=== PATIENT | female | born 1985 | race Caucasian/White ===

== ENCOUNTER 2017-12-18 13:14 | Emergency (ER) | payer MEDICAID, SELFPAY ==
[2017-12-18 13:15] VITALS: BP 117/76; PULSE 94; RESP 18; TEMP 36.5; O2SAT 99; BMI 26.4
--- NOTE | 2017-12-18 13:54 | ED.VISSUMM ---
- ER Visit Summary Date of Service: 12/18/17 Chief Complaint: Bilateral lower back pain History of Present Illness: The patient is a 32 F who presents for 1 day of bilateral low back pain. Patient states the pain radiates around into the bilateral lower abdomen. Pain started when she woke up yesterday it waxes and wanes in intensity but is been continuous. She has had associated nausea. Denies vomiting, fever, diarrhea. She does have associated dysuria, worse when she tries to initiate urination, frequency, urgency and small amount of hematuria. Patient has no history of kidney stones but feels like she may have passed one yesterday, stating that she felt crampy like she was given . She states she may be . History of hypertension. Physical Examination: Vital signs: afebrile, hemodynamically stable, no hypoxia on room air General: well nourished, well developed, in no distress Skin: warm, dry, no rash, no pallor HEENT: normocephalic and atraumatic; PERRL, EOMI, moist mucous membranes Cardiovascular: regular rate and rhythm without murmurs, no peripheral edema, 2+ pulses all distal extremities Respiratory: No increased work of breathing, lungs are clear to auscultation bilaterally, no rales, rhonchi or wheezing Abdominal: Abdomen is soft, tender in the suprapubic and bilateral lower quadrants with hyperactive bowel sounds, no guarding or rebound, no masses, negative CVA tenderness MSK: Moves all extremities, no deformities, normal strength Neuro: Awake and alert, oriented ?4. No facial droop, sensation and motor function intact and symmetric Test Results: Abnormal Lab Results 12/18/17 12/18/17 12/18/17 14:05 14:05 14:15 WBC 12.0 H RBC 4.57 Hgb 13.1 Hct 39.7 MCV 86.9 MCH 28.7 MCHC 33.0 RDW 14.6 RDW Differential 46.1 H Plt Count 361 MPV 8.3 Immature Gran % (Auto) 0.400 Neut % (Auto) 75.2 H Lymph % (Auto) 16.3 L Stearns % (Auto) 6.8 Eos % (Auto) 0.9 Baso % (Auto) 0.4 Absolute Neuts (auto) 9.0 H Absolute Lymphs (auto) 1.95 Total Counted Not Reportable Sodium 136 Potassium 3.6 Chloride 104 Carbon Dioxide 26.0 Anion Gap 6 BUN 5 L Creatinine 0.62 Estim Creat Clear Calc 133.62 Est GFR (MDRD) Af Amer 143 Est GFR (MDRD) Non-Af 118 BUN/Creatinine Ratio 8.1 L Glucose 87 Calcium 8.6 HCG, Quant Urine Color Yellow Urine Clarity Sl. Cloudy Urine pH 6.0 Ur Specific [place] 1.020 Urine Protein 100 H Urine Glucose (UA) Normal Urine Ketones Negative Urine Occult Blood 50 H Urine Nitrite Positive H Urine Bilirubin Negative Urine Urobilinogen Normal Ur Leukocyte Esterase 500 H Urine RBC 0 SEEN Urine WBC >100 SEEN Ur Squamous Epith Cells 0-5 SEEN Urine Bacteria 0 SEEN Urine Mucus 0 SEEN Urine Test Positive H Blood Type 12/18/17 12/18/17 15:00 15:00 WBC RBC Hgb Hct MCV MCH MCHC RDW RDW Differential Plt Count MPV Immature Gran % (Auto) Neut % (Auto) Lymph % (Auto) Stearns % (Auto) Eos % (Auto) Baso % (Auto) Absolute Neuts (auto) Absolute Lymphs (auto) Total Counted Sodium Potassium Chloride Carbon Dioxide Anion Gap BUN Creatinine Estim Creat Clear Calc Est GFR (MDRD) Af Amer Est GFR (MDRD) Non-Af BUN/Creatinine Ratio Glucose Calcium HCG, Quant 68839 H Urine Color Urine Clarity Urine pH Ur Specific [place] Urine Protein Urine Glucose (UA) Urine Ketones Urine Occult Blood Urine Nitrite Urine Bilirubin Urine Urobilinogen Ur Leukocyte Esterase Urine RBC Urine WBC Ur Squamous Epith Cells Urine Bacteria Urine Mucus Urine Test Blood Type B POSITIVE Emergency Department Course and Treatment: Patient presents with symptoms concerning for urinary tract infection versus urolithiasis. test was performed and was positive, which makes ectopic on the differential as well. CBC showed no leukocytosis. No electrolyte derangements or renal dysfunction. Urinalysis was highly positive for urine infection. Beta hCG was in 18,000. Patient is Rh+. Ultrasound was performed to evaluate for possible ectopic . Intrauterine noted on wet read with heart rate of 124. Patient was placed on antibiotics for UTI, at dosing for early pyelonephritis, given the bilateral back pain. She is to follow-up with her OB and was also given prescription for vitamins. Return precautions given. Patient will be discharged home once formal read of ultrasound is performed. Treatment Plan: [] Disposition: [] Impression: First trimester , UTI This note was generated with Simplify dictation software. It may contain incorrect words, spelling, and punctuation that were not noted in review of the chart prior to signing ED Disposition - Plan for ED Patient: Disposition: Home or Assisted Living Chief Complaint: Flank Pain Instructions: ED Care, ED Kidney Infec Female, ED UTI Cystitis Female Prescriptions: Cephalexin [Keflex] 500 mg PO Q8 #30 cap Vit Calc,Iron,Folic [ Vitamins] 1 ea PO DAILY 30 Days #30 tab Referrals: Georges Lubin MD [NON-STAFF] - Additional Instructions: Please follow up with your OB to establish care. Take the vitamins daily as prescribed. TAke the antibiotic three times daily as prescribed to treat your urinary tract/kidney infection. If you have any worsening of your condition or any new concerning symptoms, please return immediately to the emergency department for another evaluation.
[2017-12-18 14:15] LABS: Absolute Lymphocyte Count 1.95 X10^3/ul (0.83-4.51); Basophil# 0.05 X10^3/uL; Basophil% 0.4 % (0-1); Eosinophil# 0.11 X10^3/uL; Eosinophils% 0.9 % (0-5); Hematocrit 39.7 % (37-47); Hemoglobin 13.1 g/dl (12.0-15.0); Lymphocyte # 1.95 X10^3/ul (4.0); Lymphocyte % 16.3 % (19-41); Mean Corpuscular Hgb 28.7 pg (27.0-32.0); Mean Corpuscular Volume 86.9 fL (81-99); Mean Platelet Vol. 8.3 fl (6.2-12.0); Monocyte# 0.81 X10^3/uL; Monocyte% 6.8 % (0-10); Neutrophil # 8.99 X10^3/uL (2.7-7.7); Neutrophil % 75.2 % (47-70); Platelet Count 361 K/mm3 (150-450); RBC Distribution Width CV 14.6 % (11.6-14.6); RBC Distribution Width SD 46.1 fl (35.1-43.9); Red Blood Count 4.57 M/mm3 (4.2-5.4)
[2017-12-18 14:16] LABS: Differential Indicated SCAN CRITERIA MET; POSITIVE COUNT NO; POSITIVE DIFFERENTIAL NO; POSITIVE MORPHOLOGY YES
[2017-12-18] MEDS: 0.9% Normal Saline 1,000 ML 250 ML IV (14:17)
[2017-12-18] MEDS: Ondansetron 4 MG/2 ML Vial IV (14:17)
[2017-12-18] MEDS: Ketorolac 30 MG/ML Syringe IV (14:17)
[2017-12-18 14:20] LABS: Bacteria 0 SEEN /hpf (None Seen); Mucous, Urine 0 SEEN /hpf (<or=2+); Red Blood Cells-Urine 0 SEEN /hpf (0-5)
[2017-12-18 14:24] LABS: Anion Gap 6 (5-15); BUN 5 mg/dL (7-18); BUN/Creat Ratio 8.1 RATIO (10-20); Calcium,Total 8.6 mg/dL (8.5-10.1); Chloride 104 mmol/L (98-107); Creatinine, Serum 0.62 mg/dL (0.55-1.02); EST Glomerular Filtration Rate 118 mL/min (>60); Est Glom Filt Rate - Afr Amer 143 mL/min (>60); Estimated Creatinine Clearance 133.62 ml/min; Glucose 87 mg/dL (74-106); Potassium 3.6 mmol/L (3.5-5.1); Sodium Level 136 mmol/L (136-145)
[2017-12-18 14:32] LABS: Color, Urine Yellow (Yellow); Glucose, Dipstick Normal (Normal); Ketone-Dipstick Negative (Negative); Leukocyte Esterase-Dipstick 500 /ul (Negative); Nitrite-Dipstick Positive (Negative); Occult Blood-Urine 50 /ul (Negative); Protein-Dipstick 100 mg/dl (Negative); Urine Bilirubin Dipstick Negative (Negative); Urine Clarity Sl. Cloudy (Clear); Urine Urobilinogen Normal (Normal)
--- NOTE | 2017-12-18 14:36 | ED.RN ---
POS PREG CALLED FROM THE LAB. DR MOON AWARE
[2017-12-18 14:41] LABS: Squamous Epithelial Cells - UA 0-5 SEEN /hpf (5-10); White Blood Cells >100 SEEN /hpf (0-5)
[2017-12-18 14:42] LABS: Internal QC Validated? YES +Cl - CLEAR BKGD; Pregnancy, Urine Positive Negative
--- NOTE | 2017-12-18 14:46 | US_ITS ---
STUDY: FIRST TRIMESTER OBSTETRICAL ULTRASOUND REASON FOR EXAM: Female, 32 years old. Cramping for 2 days during . History of ectopic . LMP: November 13, 2017 provided by patient, who is uncertain of exact LMP. TECHNIQUE: Transvaginal PRIOR ULTRASOUND: None. FINDINGS: There is visualization of a single gestational sac in a normal intrauterine position. The mean sac diameter (MSD) measures 1.7 cm, indicating an estimated gestational age (EGA) of 6 weeks, 4 days. The gestational sac shape is within normal limits. There is a visualized yolk sac. The yolk sac measures 4.4 mm. The placenta is non-visualized. A moderately defined 12 x 13 x 9 mm crescent shaped hypoechogenicity along the right superolateral margin of the gestational sac is consistent with a small subchorionic hemorrhage. There is visualization of a live embryo. The crown-rump length (CRL) measures 9.8 mm, indicating an estimated gestational age (EGA) of 7 weeks, 1 days. There is demonstrated cardiac activity with a heart rate of 124 bpm. The estimated gestation age (EGA) by LMP is 5 weeks, 0 days. The estimated date of delivery (RONALD) by LMP is August 20, 2018. The estimated gestation age (EGA) by US is 6 weeks, 6 days. The estimated date of delivery (RONALD) by US is August 07, 2018. The uterus measures 10.0 x 6.6 x 5.6 cm. There is no demonstrated uterine fibroid. The cervix is closed. The right ovary measures 2.5 x 2.9 x 2.2 cm. There is no right ovarian cyst. There is no visualized right adnexal mass or complex lesion. The left ovary measures 2.0 x 2.2 x 1.7 cm. There is no left ovarian cyst. There is no visualized left adnexal mass or complex lesion. There is small volume free fluid in the cul de sac. US/Transvaginal w/Preg US IMPRESSION: 1. Single living intrauterine at estimated gestational age of 6 weeks, 6 days. Estimated date of delivery by today's study is August 07, 2018. 2. Small subchorionic hemorrhage along the right superolateral margin of the gestational sac. 3. Small volume of free fluid in the cul-de-sac. 4. Unremarkable ovaries. Electronically Signed: Anthony Potter MD at 17:34 EDT , Service support ,
[2017-12-18 15:47] LABS: hCG Titer Quant., Serum 18882 mIU/mL (<9 non-preg)
[2017-12-18 16:17] VITALS: BP 138/77; PULSE 72; RESP 16; O2SAT 97
[2017-12-18 16:53] VITALS: BP 129/74; PULSE 74; RESP 16
--- NOTE | 2017-12-18 17:08 | ED.DEP ---
ED Disposition - Plan for ED Patient: Disposition: Home or Assisted Living Chief Complaint: Flank Pain Instructions: ED UTI Cystitis Female, ED Kidney Infec Female, ED Care Prescriptions: Cephalexin [Keflex] 500 mg PO Q8 #30 cap Vit Calc,Iron,Folic [ Vitamins] 1 ea PO DAILY 30 Days #30 tab Referrals: Georges Lubin MD [NON-STAFF] - Additional Instructions: Please follow up with your OB to establish care. Take the vitamins daily as prescribed. TAke the antibiotic three times daily as prescribed to treat your urinary tract/kidney infection. If you have any worsening of your condition or any new concerning symptoms, please return immediately to the emergency department for another evaluation.
[2017-12-18] MEDS: Cephalexin 250 MG Capsule 500 MG PO (17:29)
[2017-12-18 17:51] VITALS: BP 108/64; PULSE 72; RESP 15; O2SAT 98
== END 2017-12-18 17:52 | disposition home or self-care (01) ==
PROVIDERS: Emergency Provider Emergency Medicine
DX: O23.41 Unspecified infection of urinary tract in pregnancy, first trimester (principal); O10.911 Unspecified pre-existing hypertension complicating pregnancy, first trimester; Z3A.00 Weeks of gestation of pregnancy not specified; Z79.899 Other long term (current) drug therapy
CPT/HCPCS: 76817; 80048; 81001; 81025; 84702; 85025; 86900; 96361; 96374; 96375; 99284; J7030; A4216; J2405

== ENCOUNTER → 2018-05-04 18:17 | Outpatient (CLI) | payer MEDICAID, SELFPAY ==
[2018-05-04 19:13] LABS: Amphetamine Urine VISTA NEGATIVE (<1000 ng/mL); Barbiturate Urine VISTA NEGATIVE (< 200 ng/mL); Benzodiazepine Urine VISTA NEGATIVE (< 200 ng/mL); Cocaine Urine VISTA NEGATIVE (< 300 ng/mL); Ecstacy Urine VISTA NEGATIVE (< 500 ng/mL); Methadone Urine VISTA NEGATIVE (< 300 ng/mL); PCP Urine VISTA NEGATIVE (< 25 ng/mL); THC Urine VISTA NEGATIVE (< 50 ng/mL); Vista UDS pH Range 6
== END ==
PROVIDERS: Family Provider Family Medicine; PCP Family Medicine; Referring Provider Obstetrics & Gynecology; Visit Provider Obstetrics & Gynecology
DX: O99.320 Drug use complicating pregnancy, unspecified trimester (principal); F19.10 Other psychoactive substance abuse, uncomplicated; Z3A.00 Weeks of gestation of pregnancy not specified
CPT/HCPCS: 80307

== ENCOUNTER → 2018-05-16 12:17 | Outpatient (CLI) | payer MEDICAID, SELFPAY ==
[2018-05-16 12:58] LABS: Absolute Lymphocyte Count 2.41 X10^3/ul (0.83-4.51); Absolute Neutrophil Count 7.5 X10^3/uL (2.0-7.7); Basophil# 0.04 X10^3/uL; Basophil% 0.4 % (0-1); Eosinophil# 0.13 X10^3/uL; Eosinophils% 1.2 % (0-5); Hematocrit 29.3 % (37-47); Hemoglobin 9.8 g/dl (12.0-15.0); Lymphocyte # 2.41 X10^3/ul (4.0); Lymphocyte % 22.5 % (19-41); Mean Corp Hgb Conc 33.4 g/gl (32-36); Mean Corpuscular Hgb 29.8 pg (27.0-32.0); Mean Corpuscular Volume 89.1 fL (81-99); Mean Platelet Vol. 8.5 fl (6.2-12.0); Monocyte# 0.56 X10^3/uL; Monocyte% 5.2 % (0-10); Neutrophil # 7.52 X10^3/uL (2.7-7.7); POSITIVE COUNT NO; POSITIVE DIFFERENTIAL NO; POSITIVE MORPHOLOGY NO; Platelet Count 316 K/mm3 (150-450); RBC Distribution Width CV 14.1 % (11.6-14.6); RBC Distribution Width SD 46.3 fl (35.1-43.9); Red Blood Count 3.29 M/mm3 (4.2-5.4); White Blood Count 10.7 K/mm3 (4.4-11.0)
[2018-05-16 13:16] LABS: Glucose Challenge Gest 1H 50g 129 mg/dL (70-140)
== END ==
LOC: US 12:20 → LAB 05-17 06:14
PROVIDERS: Family Provider Family Medicine; PCP Family Medicine; Referring Provider Nurse Practitioner Women's Health; Visit Provider Nurse Practitioner Women's Health
DX: O09.70 Supervision of high risk pregnancy due to social problems, unspecified trimester (principal); Z3A.00 Weeks of gestation of pregnancy not specified
CPT/HCPCS: 36415; 82950; 85025

== ENCOUNTER → 2018-05-21 14:11 | Outpatient (CLI) | payer MEDICAID, SELFPAY ==
--- NOTE | 2018-05-21 14:12 | US_ITS ---
STUDY: SECOND AND THIRD TRIMESTER OBSTETRICAL ULTRASOUND - LIMITED REASON FOR EXAM: Female, 32 years old. Routine survey. LMP: 10/29/2017 PRIOR ULTRASOUND: 12/10/2017 TECHNIQUE: Transabdominal and Transvaginal TECHNICAL QUALITY: Adequate. FINDINGS: There is a single intrauterine fetus. The fetus is in an transverse lie with the head on the maternal left side. There is demonstrated cardiac activity with a heart rate of 143 bpm. There is a low normal amniotic fluid volume. The largest amniotic fluid pocket measures 2.63 cm. The amniotic fluid index (ELROY) is 7.3 cm. The placenta is posterior with a complete previa. There are Grade 2-3 placental changes. The cervix measures 5.4 cm cm in length. BIOMETRY: BPD: 7.1 cm: 28 weeks, 5 days HC: 27.5 cm: 30 weeks, 1 days AC: 26.7 cm: 30 weeks, 6 days FL: 5.6 cm: 29 weeks, 2 days Age by LMP: 29 weeks, 1 days. RONALD by LMP: 08/05/2018. age by prior US: 6 weeks, 6 days. RONALD by prior US: 08/07/2018. age by current US: 29 weeks, 6 days. RONALD by current US: 07/31/2018. Estimated weight: 1503 grams, +/- 219 grams, 71 percentile. US/OB Limited With Biometrics IMPRESSION: Single live intrauterine at 29 weeks, 6 days by current ultrasound with RONALD of 07/31/2018. Heart rate 143 bpm. There has been normal growth since the previous study. Placenta is posterior with complete previa, close follow-up recommended to assure migration away from the cervix. Low normal amniotic fluid level at 7.34 cm, largest pocket measures 2.63 cm Electronically Signed: Anthony Pittman MD at 16:26 EDT , Service support ,
== END ==
PROVIDERS: Family Provider Family Medicine; PCP Family Medicine; Referring Provider Nurse Practitioner Women's Health; Visit Provider Nurse Practitioner Women's Health
DX: O26.842 Uterine size-date discrepancy, second trimester (principal); Z3A.00 Weeks of gestation of pregnancy not specified
CPT/HCPCS: 76816

== ENCOUNTER 2018-07-31 05:41 | Inpatient (IN) | payer MEDICAID, SELFPAY ==
--- NOTE | 2018-07-31 06:04 | PLAC_PTH ---
PATIENT: JACKI ROCHA LOC: [facility] U#:[id number] AGE/SX: 32/F ROOM: WP013 RE07/31/[address]: Dr. Kadie Stone MD : [id number] BED: 1 DIS: 08/01/2018 SPEC #: [id number] RECD: 07/31/18 08:55 STATUS: YUMIKO REJose R #: [id number] CARLOS: 07/31/18 06:[address]: Kadie Stone DEPT: SURGICAL PATHOLOGY RECD BY: Tomas Medina ENTERED: 07/31/18 11:47 SP TYPE: PLACENTA OTHR DR: Dr. Georges Lubin MD Tissues: Placenta, NOS Procedures: Surgery Specimen Level V HEADER OPERATION: Vaginal delivery PRE-OP DIAGNOSIS: Routine TISSUE SUBMITTED: Placenta MICROSCOPIC DIAGNOSIS Page placenta (734 gm): Umbilical cord - trivascular with no inflammation. Placental membranes - no pathologic change. Placental disc - Garrett-Spencer change, increased intraparenchymal fibrin plaques and microcalcifications. AM:dean 08/02/18 MICROSCOPIC DESCRIPTION Slides are reviewed. GROSS DESCRIPTION SPECIMEN: PLACENTA / CLINICAL INFORMATION: A. Weight: 2.942 kg B. Gestational Age: 39 weeks C. Sex: Male PLACENTAL WEIGHT (POST FIXATION): 734 gm PLACENTAL DIMENSIONS: 19 x 18 3.5 cm PLACENTAL SHAPE: Usual ovoid PLACENTAL WEIGHT FOR GESTATIONAL AGE: Over 99th percentile MEMBRANES - Present A. Insertion: Marginal B. Site of rupture from edge: Distance of rupture cannot be assessed due to fragmented nature of the membranes. C. Color of membrane: De Santiago-greenish and disrupted consistent with meconium staining. D. Abnormalities: None UMBILICAL CORD - Present A. Color: De Santiago-guerrero B. Insertion: Paracentral C. Length: 45 cm D. Diameter: Up to 1.3 cm E. Number of vessels: Three F. Abnormalities: None PLACENTAL DISC - Present A. Color of surface: De Santiago-guerrero B. surface abnormalities: None C. Maternal cotyledons: Intact with minimal tears D. Attached retro placental clot: No clot E. Cut surface: Dark red and spongy F. Lesions: Sections reveal a cyst filled with mucoid material measuring 1 cm in greatest dimension. Sections also reveal a de santiago, indurated lesion measuring 0.5 cm in greatest dimension. G. Separate clot: Absent SECTIONS SUBMITTED: 1. Membrane roll 2. Cord, maternal end 3. Cord, end 4. Placental disc, and maternal surfaces, de santiago, indurated lesion 5. Placental disc, and maternal surfaces, cystic lesion 6. Placental disc, and maternal surfaces 7. Additional membranes BALDEMAR:dean 08/01/18 TC:5 CPT: 62967
[2018-07-31] MEDS: Oxytocin 30 units/NS 500 ml 30 UNITS/500 ML IV.SOLN 334 UNITS IV (06:08)
[2018-07-31] MEDS: Methylergonovine 0.2 MG/ML Ampul IM (06:17)
[2018-07-31] MEDS: Oxytocin 30 units/NS 500 ml 30 UNITS/500 ML IV.SOLN 167 UNITS IV (06:38)
[2018-07-31 07:41] VITALS: BMI 25.1
[2018-07-31 07:52] LABS: Hemoglobin 9.6 g/dl (12.0-15.0); Mean Corp Hgb Conc 33.1 g/gl (32-36); Mean Corpuscular Hgb 28.3 pg (27.0-32.0); Mean Corpuscular Volume 85.5 fL (81-99); Mean Platelet Vol. 8.5 fl (6.2-12.0); Platelet Count 281 K/mm3 (150-450); RBC Distribution Width CV 14.2 % (11.6-14.6); RBC Distribution Width SD 44.2 fl (35.1-43.9); Red Blood Count 3.39 M/mm3 (4.2-5.4); White Blood Count 13.3 K/mm3 (4.4-11.0)
[2018-07-31 07:54] LABS: Scan Indicated on CBC? Y/N NO
[2018-07-31] MEDS: Naproxen 250 MG Tablet PO ×2 (08:01→19:55)
[2018-07-31 08:03] LABS: AST(SGOT) 11 U/L (15-37); Alanine Aminotransfer ALT/SGPT 12 U/L (13-56); Creatinine, Serum 0.56 mg/dL (0.55-1.02); EST Glomerular Filtration Rate 132 mL/min (>60); Est Glom Filt Rate - Afr Amer 160 mL/min (>60); Estimated Creatinine Clearance 153.07 ml/min; Uric Acid 3.9 mg/dL (2.6-6.0)
[2018-07-31 08:17] LABS: Color, Urine Yellow (Yellow); Glucose, Dipstick Normal (Normal); Ketone-Dipstick 50 mg/dl (Negative); Leukocyte Esterase-Dipstick 100 /ul (Negative); Nitrite-Dipstick Negative (Negative); Occult Blood-Urine 25 /ul (Negative); Protein-Dipstick 30 mg/dl (Negative); Specific Gravity, Urine 1.025 (1.002-1.030); Urine Clarity Clear (Clear); Urine Urobilinogen 4 mg/dl (Normal)
[2018-07-31 08:18] LABS: Urine Bilirubin Dipstick 1 mg/dL (Negative)
--- NOTE | 2018-07-31 08:21 | NURSING ---
pt arrived via squad, IV previously placed via squad
[2018-07-31 08:23] LABS: Bacteria 2+ /hpf (None Seen); Mucous, Urine 3+ /hpf (<or=2+); Red Blood Cells-Urine 0-5 SEEN /hpf (0-5); Squamous Epithelial Cells - UA 0-5 SEEN /hpf (5-10); White Blood Cells 10-25 SEEN /hpf (0-5)
--- NOTE | 2018-07-31 08:24 | PCM.HP.OB ---
- Problem List (1) Limited care in third trimester Status: Acute (2) Active labor at term Status: Acute (3) Placenta previa Status: Resolved Comment: posterior complete. (4) Ectopic Status: Acute (5) Hypertension Status: Chronic (6) Hyperlipemia Status: Acute (7) Heartburn Status: Acute (8) Dysthymic disorder Status: Acute Comment: Depression (non- psychotic) (9) Asthma Status: Acute (10) Arthritis Status: Acute (11) Anemia Status: Acute (12) Abnormal Pap smear of cervix Status: Acute Comment: Neg Cytology/ + HPV will need repeat PP (13) Trichomoniasis of vagina Status: Acute Comment: + Trich at F 01/05/18 and 02/08/18. Treated with Metronidazole 2g PO x1. will need rescreen 1-2 months and at 36 weeks gestation (14) Anemia affecting Status: Acute Comment: Add Fe and recheck CBC 4 weeks (15) Uterine size-date discrepancy, second trimester Status: Acute Comment: growth us ordered (16) Chronic hypertension during Status: Acute Comment: no meds at present, states she has had in the past but hasn't been evaluated for years. obtain [facility] records. (17) Alcohol use Status: Acute Comment: has history of alcohol abuse, states none currently in . (18) Supervision of high risk due to social problems Status: Acute Qualifiers: Trimester: second trimester Qualified Code(s): O09.72 - Supervision of high risk due to social problems, second trimester Comment: RONALD 08/05/18 PC doesn't have custody boyfriend Deep not FOB (19) Methamphetamine abuse Status: Acute Comment: T Screen done at [facility] on 01/01/18. Negative results. most recent use end of march. information to one eighty given. 05/16/18: Admits meth use 3 days ago. Tox screen next visit (20) Tobacco use affecting in third trimester, antepartum Status: Acute Comment: encouraged cessation History Date of Admission: 07/31/18 Final RONALD: 08/05/18 Gestational age: 39 Weeks and 3 Days History of this : 32 yo @ 39w2d presents IAL and delivers preciptiously. Patient has had a complicated by noncompliance with visits and meth use to which she admits using in the last 12 hours. patient denies any vaginal bleeding. she denies any lof but has had contractions for the last 1 1/2 hours and was brought the hospital by squad. she hasn't had a visit in 10 weeks. her first 26 weeks were cared for at the [facility] and then she transferred care to [facility]. Medical History: Medical History (Last Updated 05/18/18 @ 09:11 by Anaya Ayala) Nexplanon removal Onset Date: ~04/05/16 Z30.46 Hypertension I10 Surgical History: Surgical History (Last Updated 05/18/18 @ 09:11 by Anaya Ayala) H/O tooth extraction K08.409 H/O wisdom tooth extraction K08.409 Ingrown toenail L60.0 Allergies No Known Allergies Allergy (Verified 07/31/18 07:46) Home Medications: Home Medications Ferrous Sulfate 07/31/18 Vit Calc,Iron,Folic [ Vitamins] 1 each PO DAILY 07/31/18 Smoking Status: Current every day smoker Substance Use Type: Alcohol, Methamphetamine Number of Fetus(es): 1 Heart Tracin-150 moderate variability History Past Pregnancies: Past Pregnancies 3 previous term no custody of any of the children Labs: Mom's Problem List Problem Status Onset Code Limited care in third trimester Acute O09.33 Active labor at term Acute Mom's Labs & Results 07/31/18 07/31/18 07/31/18 07:00 07:00 07:00 WBC 13.3 H RBC 3.39 L Hgb 9.6 L Hct 29.0 L MCV 85.5 MCH 28.3 MCHC 33.1 RDW 14.2 RDW Differential 44.2 H Plt Count 281 MPV 8.5 PT 14.1 INR 1.1 APTT 30.6 Creatinine Estim Creat Clear Calc Est GFR (MDRD) Af Amer Est GFR (MDRD) Non-Af Uric Acid AST ALT Urine Color Urine Clarity Urine pH Ur Specific [place] Urine Protein Urine Glucose (UA) Urine Ketones Urine Occult Blood Urine Nitrite Urine Bilirubin Urine Urobilinogen Ur Leukocyte Esterase Urine RBC Urine WBC Ur Squamous Epith Cells Urine Bacteria Urine Mucus Urine Opiates Screen Urine Methadone Screen Ur Barbiturates Screen Ur Phencyclidine Scrn Ur Amphetamines Screen U Amphetamines Confirm U Methamphetamin-MDMA U Benzodiazepines Scrn Urine Cocaine Screen U Cannabinoids Screen Ur Drug Screen Comment RPR Hep Bs Antigen Hepatitis C Ab (EIA) HIV 1&2 Antibody Rubella IgG Antibody Blood Type B POSITIVE Antibody Screen NEGATIVE 07/31/18 07/31/18 07/31/18 07:00 07:30 07:30 WBC RBC Hgb Hct MCV MCH MCHC RDW RDW Differential Plt Count MPV PT INR APTT Creatinine 0.56 Estim Creat Clear Calc 153.07 Est GFR (MDRD) Af Amer 160 Est GFR (MDRD) Non-Af 132 Uric Acid 3.9 AST 11 L ALT 12 L Urine Color Yellow Urine Clarity Clear Urine pH 6.0 Ur Specific [place] 1.025 Urine Protein 30 H Urine Glucose (UA) Normal Urine Ketones 50 H Urine Occult Blood 25 H Urine Nitrite Negative Urine Bilirubin 1 H Urine Urobilinogen 4 H Ur Leukocyte Esterase 100 H Urine RBC 0-5 SEEN Urine WBC 10-25 SEEN Ur Squamous Epith Cells 0-5 SEEN Urine Bacteria 2+ Urine Mucus 3+ Urine Opiates Screen NEGATIVE Urine Methadone Screen NEGATIVE Ur Barbiturates Screen NEGATIVE Ur Phencyclidine Scrn NEGATIVE Ur Amphetamines Screen POSITIVE H U Amphetamines Confirm U Methamphetamin-MDMA POSITIVE H U Benzodiazepines Scrn NEGATIVE Urine Cocaine Screen NEGATIVE U Cannabinoids Screen NEGATIVE Ur Drug Screen Comment RPR Hep Bs Antigen Hepatitis C Ab (EIA) HIV 1&2 Antibody Rubella IgG Antibody Blood Type Antibody Screen 07/31/18 07/31/18 07/31/18 07:30 07:45 07:45 WBC RBC Hgb Hct MCV MCH MCHC RDW RDW Differential Plt Count MPV PT INR APTT Creatinine Estim Creat Clear Calc Est GFR (MDRD) Af Amer Est GFR (MDRD) Non-Af Uric Acid AST ALT Urine Color Urine Clarity Urine pH Ur Specific [place] Urine Protein Urine Glucose (UA) Urine Ketones Urine Occult Blood Urine Nitrite Urine Bilirubin Urine Urobilinogen Ur Leukocyte Esterase Urine RBC Urine WBC Ur Squamous Epith Cells Urine Bacteria Urine Mucus Urine Opiates Screen Urine Methadone Screen Ur Barbiturates Screen Ur Phencyclidine Scrn Ur Amphetamines Screen U Amphetamines Confirm Pending U Methamphetamin-MDMA U Benzodiazepines Scrn Urine Cocaine Screen U Cannabinoids Screen Ur Drug Screen Comment RPR Pending Hep Bs Antigen Hepatitis C Ab (EIA) HIV 1&2 Antibody Rubella IgG Antibody 55.2 Blood Type Antibody Screen 07/31/18 07/31/18 07:45 07:45 WBC RBC Hgb Hct MCV MCH MCHC RDW RDW Differential Plt Count MPV PT INR APTT Creatinine Estim Creat Clear Calc Est GFR (MDRD) Af Amer Est GFR (MDRD) Non-Af Uric Acid AST ALT Urine Color Urine Clarity Urine pH Ur Specific [place] Urine Protein Urine Glucose (UA) Urine Ketones Urine Occult Blood Urine Nitrite Urine Bilirubin Urine Urobilinogen Ur Leukocyte Esterase Urine RBC Urine WBC Ur Squamous Epith Cells Urine Bacteria Urine Mucus Urine Opiates Screen Urine Methadone Screen Ur Barbiturates Screen Ur Phencyclidine Scrn Ur Amphetamines Screen U Amphetamines Confirm U Methamphetamin-MDMA U Benzodiazepines Scrn Urine Cocaine Screen U Cannabinoids Screen Ur Drug Screen Comment RPR Hep Bs Antigen Pending Hepatitis C Ab (EIA) Pending HIV 1&2 Antibody Non-Reactive Rubella IgG Antibody Blood Type Antibody Screen Course Did the patient receive No care? Labs Chlamydia Negative Gonorrhea Negative HIV/AIDS Non-Reactive Other Lab Procedures/Results/ drawing labs after delivery with Comments: admission Current Obstetrical History Gestational Diabetes No Incompetent Cervix No Infertility No IUGR No Macrosomia No Hypertension/Pre-eclampsia Yes Placenta Previa/Abruption Yes: resolved PTL/PROM No Uterine anomaly No Oligohydramnios No Polyhydramnios No Multiple gestation No Past Medical History Asthma Yes: exercise induced and has inhaler and doesn' t use Diabetes No Hypertension Yes: pt states taken before - HCTZ, norvasc Heart disease No Mitral valve prolapse No Neurologic/Seizure disorder/ Yes: pt states taking imitrex Migraines Kidney disease No Liver disease No Varicosities Yes Clotting disorders/Hx of DVT No Thyroid Dysfunction No Other medical diseases No Psychiatric disorders Yes: depression, PTSD, anxiety Major trauma No Abnormal PAP smear Yes: history Sleep apnea No Mammogram in the last 2 years No Social History Marital Status: SINGLE Hx Smoking Yes Smoking Status Current every day smoker Substance Use Type Alcohol,Methamphetamine How long have you used pt states on and off since last year substances (years)? 2013 pt started using What date/time did you last meth - last night use any of the above? pt states having an occasional beer few weeks ago Have you had any previous 2015 pt states being in group home for substance inpatient or outpatient abuse- 6 months and 2 months in shelter treatment pt denies rehab but states was in isolation while in group home Expected Infant Delivery Method: Spontaneous Vaginal Review of Systems Constitutional: Denies: Fever, Malaise Eyes: Denies: Blurred vision, Vision Change HEENT: Denies: Head Aches, Visual Changes Cardiovascular: Denies: Chest Pain, Palpitations Respiratory: Denies: Cough, Shortness of Breath, Wheezing Gastrointestinal: Reports: Abdominal Pain. Denies: Diarrhea, Nausea, Vomiting Genitourinary: Denies: Dysuria, Hematuria Musculoskeletal: Denies: Joint Pain, Muscle pain Skin: Denies: Lesions, Rash Neurological: Denies: Blurred vision, Focal weakness, Headaches Psychiatric: Denies: Anxiety, Depression Endocrine: Denies: Heat/ Cold Intolerance Hematologic/ Lymphatic: Denies: Easy Bruising, Easy Bleeding Physical Exam General: Alert, Cooperative, - - agitated and appears under hte influence of drugs HEENT: Atraumatic, Normocephalic. Negative for: Thyromegaly, Lymphadenopathy Cardiovascular: Tachycardic Lungs: Normal air movement Abdomen: Gravid Neurological: Neuro grossly intact [employer]: Normal external genitalia. Negative for: Vulvar lesions Estimated gestational size: Small for gestational age Presentation: Cephalic Cervix Dilation (cm): 10 Assessment/Plan All Active Problems (Last Updated 05/18/18 @ 09:11 by Anaya Ayala) Limited care in third trimester (Acute) Active labor at term (Acute) Ectopic (Acute ~2001) Hyperlipemia (Acute) Heartburn (Acute) Dysthymic disorder (Acute) Asthma (Acute) Arthritis (Acute) Anemia (Acute) Abnormal Pap smear of cervix (Acute) Trichomoniasis of vagina (Acute) Anemia affecting (Acute) Uterine size-date discrepancy, second trimester (Acute) Chronic hypertension during (Acute) Alcohol use (Acute) Supervision of high risk due to social problems (Acute) Methamphetamine abuse (Acute) Tobacco use affecting in third trimester, antepartum (Acute) Placenta previa (Resolved) This is a 32 year-old, at 39 weeks gestational age presents and delivers precipitously 1. routine care 2. family welfare social work professor consult 3. monitor for signs of drug/alcohol withdrawl
--- NOTE | 2018-07-31 08:25 | OP.PCM_ITS ---
- Problem List (1) Limited care in third trimester Status: Acute (2) Active labor at term Status: Acute (3) Abnormal Pap smear of cervix Status: Acute Comment: Neg Cytology/ + HPV will need repeat PP (4) Alcohol use Status: Acute Comment: has history of alcohol abuse, states none currently in . (5) Anemia Status: Acute (6) Anemia affecting Status: Acute Comment: Add Fe and recheck CBC 4 weeks (7) Arthritis Status: Acute (8) Asthma Status: Acute (9) Chronic hypertension during Status: Acute Comment: no meds at present, states she has had in the past but hasn't been evaluated for years. obtain F records. (10) Dysthymic disorder Status: Acute Comment: Depression (non- psychotic) (11) Ectopic Status: Acute (12) Heartburn Status: Acute (13) Hyperlipemia Status: Acute (14) Methamphetamine abuse Status: Acute Comment: T Screen done at [facility] on 01/01/18. Negative results. most recent use end of march. information to one eighty given. 05/16/18: Admits meth use 3 days ago. Tox screen next visit (15) Placenta previa Status: Acute Comment: posterior complete. (16) Supervision of high risk due to social problems Status: Acute Qualifiers: Trimester: second trimester Qualified Code(s): O09.72 - Supervision of high risk due to social problems, second trimester Comment: RONALD 08/05/18 PC doesn't have custody boyfriend Deep not FOB (17) Tobacco use affecting in third trimester, antepartum Status: Acute Comment: encouraged cessation (18) Trichomoniasis of vagina Status: Acute Comment: + Trich at [facility] 01/05/18 and 02/08/18. Treated with Metronidazole 2g PO x1. will need rescreen 1-2 months and at 36 weeks gestation (19) Uterine size-date discrepancy, second trimester Status: Acute Comment: growth us ordered (20) Hypertension Status: Chronic Vaginal Delivery Maternal Presentation: Active Labor 32 yo @ 39w2d presents IAL and delivers preciptiously. Patient has had a complicated by noncompliance with visits and meth use to which she admits using in the last 12 hours. patient denies any vaginal bleeding. she denies any lof but has had contractions for the last 1 1/2 hours and was brought the hospital by squad. she hasn't had a visit in 10 weeks. her first 26 weeks were cared for at the [facility] and then she transferred care to [facility]. Amniotic Membrane Rupture Type: Artificial Amniotic Fluid Description: Thick meconium Final RONALD: 08/05/18 Gestational age: 39 Weeks and 2 Days Date of Procedure: 07/31/18 Pre-Operative Diagnosis: active labor drug use limited care Post-Operative Diagnosis: same Surgery/ Procedure Performed: Spontaneous Vaginal Delivery Type of Anesthesia: None Description of Procedure: Patient began pushing and it was noted that there was a partial brow presentation. the vertex was gently flexed and the baby converted to ROPand delivered the head in the ROP presentation. The head was delivered atraumatically. The anterior and posterior shoulders delivered without complication followed by the rest of the infant and the was placed on the maternal abdomen. Cord was clamped and cut and gentle traction was applied to the cord and the placenta delivered spontaneously immediately following it was noted to be intact with three-vessel cord. there may have been a small area of the peripheral placenta that had an abruption but nothing significant. The perineum and vagina were inspected and noted to have no laceration. EBL was 200 cc. Patient and infant tolerated delivery well. Presentation: ROP Placental Delivery Description: Spontaneous Placenta Disposition: [facility] Cord Vessel Description: 3 Vessels Cord Gases drawn per routine: ABG, VBG Cord Entanglement: None Episiotomy Description: None Laceration: None Medications given after delivery: IV Pitocin Complications: None
[2018-07-31 08:31] LABS: International Normalized Ratio 1.1; Prothrombin Time (Protime)PT. 14.1 SECONDS (11.7-14.9)
[2018-07-31 08:32] LABS: Partial Thromboplast Time 30.6 Seconds (24.1-36.2)
[2018-07-31 08:44] LABS: Amphetamine Urine VISTA POSITIVE (<1000 ng/mL); Barbiturate Urine VISTA NEGATIVE (< 200 ng/mL); Benzodiazepine Urine VISTA NEGATIVE (< 200 ng/mL); Cocaine Urine VISTA NEGATIVE (< 300 ng/mL); Ecstacy Urine VISTA POSITIVE (< 500 ng/mL); Methadone Urine VISTA NEGATIVE (< 300 ng/mL); PCP Urine VISTA NEGATIVE (< 25 ng/mL); THC Urine VISTA NEGATIVE (< 50 ng/mL); Vista UDS pH Range 5
[2018-07-31 08:48] VITALS: BP 142/96
[2018-07-31 09:08] VITALS: BP 138/98
[2018-07-31 10:02] LABS: Rubella IgG 55.2 IU/mL
[2018-07-31 10:24] LABS: HIV - WCH Non-Reactive (Nonreactive)
--- NOTE | 2018-07-31 10:52 | NURSING ---
Report given to Maye Faria RN. She will assume care of patient at this time.
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
[2018-07-31] MEDS: Acetaminophen 500 MG Tablet 1000 MG PO (13:40)
[2018-07-31] MEDS: Ondansetron 4 MG/2 ML Vial IV (13:41)
[2018-07-31 13:53] VITALS: BP 134/92; PULSE 104; RESP 16; TEMP 36.9
--- NOTE | 2018-07-31 15:30 | CASEMGMT ---
Social Work Labor and Delivery Summary: 1330 - Call to [facility] ([facility]) at [phone]. Spoke with Stacey Sumner, as kitchen supervisor in the intake department. Referral given due to substance exposed infant, with positive drug screens in both mom and baby. Brief maternal and histories provided, and included that mother of baby (MOB) Carline Justin states having a history with said agency for older children. Reported observations by this scenario writer regarding MOB and also regarding MOB's visitor Brayan. Expressed concern that MOB appears to have a limited support system. Per Stacey this will be screened in for investigation and assigned to a worker. 1520 - Received call from Sonja Rodrigues ([phone], extension [phone]) stating that assigned as the worker for this family. Updated Sonja who reports will come to hospital tomorrow to see MOB and baby. Updated nursing staff. Also let MOB know that CS will be coming tomorrow. Provided MOB with number to [facility] in case MOB wants to call. MOB voiced that may call. Plan: Follow mother of baby and baby during hospital stay. Provided resources and support as indicated. Collaborate with [facility] and hospital staff. -REGIS Edwards, KETTLE SKIMMER
[2018-07-31 17:43] VITALS: BP 134/91; PULSE 118; RESP 20; TEMP 35.9
--- NOTE | 2018-07-31 19:45 | NURSING ---
at 12pm today i received report from Holley MOURA. I feed the baby at 1330 and changed the diaper at that time moms speech was very garbled. She was eating lunch and eating with her hands, food was on moms face, she did not use utensils to eat, only using her hands. Mom was encouraged while I was in the room to use the restroom and take a shower, she states she would, pt did not shower, on hourly rounds pt would say oh i havent been to the bathroom yet I need to take a shower and I want to go out and smoke. Pt made aware per this nurse she needs to sign out at the desk and sign back in when she comes back to the floor. At 1530 baby was still in my care, mom has not asked for baby, baby was fed by nursing staff, given a bath, diaper changed. At 1645 pt signed out and pt was observed outside smoking. Pt did not ask for the baby when she returned to the floor, baby taken back to the room. mom enc to call staff for assistance we would hand her the baby so she could hold the baby, enc not to walk in the room with baby since her gait is noted to be unbalanced. pt did tell this nurse her vision has been bad for about 6 months. pt states she has double vision. 1900 rounds were done with oncoming staff, baby remains in the crib, staff has not seen mom hold or care for the baby throughout this shift. Pt was enc to change out of her clothes that she smoked in and put a clean gown on and she was compliant and did this. Pt has been compliant with staff thru out this shift regarding her self. Report given to Ny Francis RN.
[2018-07-31 20:00] VITALS: BP 134/99; PULSE 108; RESP 18; TEMP 36.3; O2SAT 97
[2018-08-01] VITALS: BP 144/97; PULSE 104; RESP 18; TEMP 36
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
[2018-08-01 04:53] VITALS: BP 136/85; PULSE 82; RESP 16; TEMP 36.1; O2SAT 98
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
[2018-08-01 08:00] VITALS: BP 143/95; PULSE 90; RESP 17; TEMP 36.7; O2SAT 99
[2018-08-01] MEDS: Naproxen 250 MG Tablet PO (08:03)
--- NOTE | 2018-08-01 09:04 | PN.OBGYN_ITS ---
Patient Problems: Active and Suspected Problems (Last Updated 05/18/18 @ 09:11 by Anaya Ayala) Limited care in third trimester (Acute) Active labor at term (Acute) Subjective: Entered room to discuss leaving today. She and male friend with faces down close to bed, sat up quickly. Discussed with her prefer her to stay today but she is adament that she is leaving. States not giving me my baby so I'm leaving. Offered for nexplanon or IUD insertion and depoprovera injection for contraception. Declines. States check my chart I'm allergic. Again encouraged would prefer she stay today but states she is leaving. - Physical Exam Vital Signs Temp Pulse Resp BP Pulse Ox 98.0 F 90 17 143/95 H 99 08/01/18 08:00 08/01/18 08:00 08/01/18 08:00 08/01/18 08:00 08/01/18 08:00 Oxygen Delivery Method Room Air Weight: 175 lb Body Mass Index (BMI) 25.1 Intake and Output for Last 24 Hours 07/30/18 07/31/18 08/01/18 23:59 23:59 23:59 Intake Total 737 / 737 Output Total 50 / 50 Balance 687 / 687 Laboratory Tests Past 24 Hrs 07/31/18 07/31/18 07/31/18 07:00 07:45 07:45 HIV 1&2 Antibody Non-Reactive Rubella IgG Antibody 55.2 Blood Type B POSITIVE Antibody Screen NEGATIVE Medical Necessity - Tobacco Use Smoking Status: Current every day smoker Assessment/Plan All Active Problems (Last Updated 05/18/18 @ 09:11 by Anaya Ayala) Limited care in third trimester (Acute) Active labor at term (Acute) Ectopic (Acute ~2001) Hyperlipemia (Acute) Heartburn (Acute) Dysthymic disorder (Acute) Asthma (Acute) Arthritis (Acute) Anemia (Acute) Abnormal Pap smear of cervix (Acute) Trichomoniasis of vagina (Acute) Anemia affecting (Acute) Uterine size-date discrepancy, second trimester (Acute) Chronic hypertension during (Acute) Alcohol use (Acute) Supervision of high risk due to social problems (Acute) Methamphetamine abuse (Acute) Tobacco use affecting in third trimester, antepartum (Acute) Placenta previa (Resolved) Discussed with nurse concerning care. social group worker will see patient later this morning when available. Nurse will notify my office if patient leaves facility.
[2018-08-01 10:57] LABS: HEPATITIS B SURFACE AG Negative (Negative); Hep C Antibodies <0.1 s/co ratio (0.0-0.9)
[2018-08-01 14:00] VITALS: BP 137/87; PULSE 90; RESP 16; TEMP 37.3; O2SAT 99
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
[2018-08-03 03:31] LABS: Rapid Plasmin Reagin (RPR) NONREACTIVE (NONREACTIVE)
[2018-08-03 14:45] LABS: Pathology Specimen OB SEE PATHOLOGY REPORT
[2018-08-07 09:38] LABS: Amphetamine Positive (.); AmphetamineGC/MS Conf 15840 ng/mL (Cutoff=500); Methamphetamines Positive (.)
[2018-08-09 09:23] LABS: Amphetamine Ur Confirm Positive (.)
--- NOTE | 2018-08-09 16:23 | CASEMGMT ---
Addendum entered and electronically signed by Kierra Guallpa 08/09/18 16:47: Reviewed and approve student documentation below. -BARB Edwards-Tito, PIPE COVERER AND INSULATOR Original Note: Social Work Labor and Delivery Called [facility] Group Tester Sonja to provide an update on confirmed toxicology results of MOB and baby. Left voicemail for Sonja to return call. No other necessary services indicated at this time. -Sissy Portillo, PUPPY SITTER Student Bottom Sprayer.
== END 2018-08-01 17:15 | disposition left against medical advice (07) | DRG 560 ==
PROVIDERS: Admitting Provider Obstetrics & Gynecology; Family Provider Family Medicine; PCP Family Medicine; Referring Provider Obstetrics & Gynecology; Visit Provider Obstetrics & Gynecology
DX: O99.324 Drug use complicating childbirth (principal); F15.10 Other stimulant abuse, uncomplicated; O99.334 Smoking (tobacco) complicating childbirth; O10.92 Unspecified pre-existing hypertension complicating childbirth; O99.02 Anemia complicating childbirth; D64.9 Anemia, unspecified; O77.0 Labor and delivery complicated by meconium in amniotic fluid; O32.3XX0 Maternal care for face, brow and chin presentation, not applicable or unspecified; Z3A.39 39 weeks gestation of pregnancy; Z37.0 Single live birth
CPT/HCPCS: 59050; 80307; 81001; 82565; 84450; 84460; 84550; 85027; 85610; 85730; 86592; 86703; 86762; 86803; 86850; 86900; 87340; 88307; 99218; G0378; J2405

== ENCOUNTER 2018-09-23 17:51 | Emergency (ER) | payer MEDICAID, SELFPAY ==
[2018-09-23 17:53] VITALS: BP 142/98; PULSE 85; RESP 16; TEMP 36.7; O2SAT 97; BMI 23.8
--- NOTE | 2018-09-23 18:45 | ED.VISSUMM ---
- ER Visit Summary Date of Service: 09/23/18 Chief Complaint: Skin breakdown on the back of her left hand and abdomen History of Present Illness: The patient is a 33 F history of methamphetamine abuse and anemia. Patient states she has had this rash for 6 months. She denies any other symptoms. Physical Examination: Well-appearing female vital signs are stable and afebrile. HEENT exam very poor dentition. Moist weeks membranes. Neck nontender. Lungs clear to auscultation bilaterally. Heart regular rate and rhythm no murmur. Abdomen soft nontender normal bowel sounds no peritoneal signs. Extremities moves all 4 neurovascular intact. Neurologically she is awake alert with no focal motor deficits. Back nontender. Skin there is no rash she has picking lesions on the back of her left hand and abdomen from where she is pick the skin most likely when she was on methamphetamines. Test Results: None Emergency Department Course and Treatment: Clean the wounds. Antibiotic ointment. Watch for signs of infection. Stop on methamphetamines. Treatment Plan: Discharge. Disposition: Discharge Impression: Skin picking secondary to methamphetamine abuse History of anemia This note was generated with Freep[employer] dictation software. It may contain incorrect words, spelling, and punctuation that were not noted in review of the chart prior to signing ED Disposition - Plan for ED Patient: Referrals: Georges Lubin MD [Primary Care Provider] -
--- NOTE | 2018-09-23 18:51 | ED.DEP ---
ED Disposition - Plan for ED Patient: Disposition: Home or Assisted Living Instructions: ED Drug Abuse General Referrals: Georges Lubin MD [Primary Care Provider] - As Needed Additional Instructions: Absolutely stop abusing methamphetamines. Keep the skin lesions clean. Stop picking them. Apply antibiotic ointment.
== END 2018-09-23 18:57 | disposition home or self-care (01) ==
PROVIDERS: Emergency Provider Emergency Medicine
DX: D64.9 Anemia, unspecified (principal); F15.10 Other stimulant abuse, uncomplicated; Z72.89 Other problems related to lifestyle; Z72.0 Tobacco use
CPT/HCPCS: 99282

== ENCOUNTER 2019-04-17 00:46 | Emergency (ER) | payer MEDICAID, SELFPAY ==
[2019-04-17 00:47] VITALS: BP 143/98; PULSE 98; RESP 20; TEMP 36.4; O2SAT 97; BMI 20.9
[2019-04-17 01:25] LABS: Internal QC Validated? YES +Cl - CLEAR BKGD; Pregnancy, Urine Negative Negative
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
== END 2019-04-17 02:47 | disposition home or self-care (01) ==
PROVIDERS: Emergency Medicine; Emergency Provider Emergency Medicine
DX: S01.511A Laceration without foreign body of lip, initial encounter (principal); F17.200 Nicotine dependence, unspecified, uncomplicated; Y09 Assault by unspecified means; Y93.89 Activity, other specified; Y92.89 Other specified places as the place of occurrence of the external cause; Y99.8 Other external cause status
CPT/HCPCS: 12011; 81025; 99285

== ENCOUNTER 2019-07-18 20:56 | Emergency (ER) | payer MEDICAID, SELFPAY ==
[2019-07-18 20:56] VITALS: BP 158/97; PULSE 120; RESP 18; TEMP 36.7; O2SAT 99; BMI 19.6
--- NOTE | 2019-07-18 22:34 | ED.DCSUM_ITS ---
History of Present Illness Chief Complaint: Substance Abuse Informant: Patient Narrative: Patient stated that she has been having urinary frequency urgency and dysuria since yesterday. She is unsure if she has a bladder infection. She did have a remote kidney stone. She denies any flank pain however. She has discussed some discomfort over her bladder. She is spotting at this time. Denies . She states she does drink alcohol daily and use methamphetamines frequently. She is not here for those reasons however. Denies any nausea vomiting fevers or chills back pain or diarrhea. Current severity is mild to moderate. No home treatment. - Past Medical History (1) Abnormal Pap smear of cervix Status: Acute Comment: Neg Cytology/ + HPV will need repeat PP (2) Active labor at term Status: Acute (3) Alcohol use Status: Acute Comment: has history of alcohol abuse, states none currently in . (4) Anemia Status: Acute (5) Anemia affecting Status: Acute Comment: Add Fe and recheck CBC 4 weeks (6) Arthritis Status: Acute (7) Asthma Status: Acute (8) Chronic hypertension during Status: Acute Comment: no meds at present, states she has had in the past but hasn't been evaluated for years. obtain [facility] records. (9) Dysthymic disorder Status: Acute Comment: Depression (non- psychotic) (10) Ectopic Status: Acute (11) Heartburn Status: Acute (12) Hyperlipemia Status: Acute (13) Limited care in third trimester Status: Acute (14) Methamphetamine abuse Status: Acute Comment: T Screen done at [facility] on 01/01/18. Negative results. most recent use end of march. information to one [address] given. 05/16/18: Admits meth use 3 days ago. Tox screen next visit (15) Supervision of high risk due to social problems Status: Acute Comment: RONALD 08/05/18 PC doesn't have custody boyfriend Deep not FOB (16) Tobacco use affecting in third trimester, antepartum Status: Acute Comment: encouraged cessation (17) Trichomoniasis of vagina Status: Acute Comment: + Trich at F 01/05/18 and 02/08/18. Treated with Metronidazole 2g PO x1. will need rescreen 1-2 months and at 36 weeks gestation (18) Uterine size-date discrepancy, second trimester Status: Acute Comment: growth us ordered (19) Hypertension Status: Chronic Past Medical History - Allergies and Home Meds Allergies/Adverse Reactions: Allergies spider venom Allergy (Verified 07/18/19 20:59) Anaphylaxis strawberry Allergy (Verified 07/18/19 20:59) Hives [place] And Derivatives Adverse Reaction (Verified 07/18/19 20:59) Rash Primary Care Physician: Ivan Albarran DO [NON CLINICAL AFFILIATE] - Prior records reviewed: Yes Past Medical History: - - See problem list Surgical History: no surgical history Smoking Status: Current every day smoker Alcohol: Heavy Drugs: - - Methamphetamines Review of Systems General: Denies: Chills, Fever, Sweats Eyes: Denies: Visual changes - bilaterally, Diplopia ENT: Denies: Rhinorrhea, Sore throat Cardiovascular: Denies: Chest pain, Palpitations Respiratory: Denies: Dyspnea, Cough, Dyspnea on exertion Gastrointestinal: Reports: Abdominal pain. Denies: Nausea, Vomiting, Diarrhea, Melena, Hematochezia Genitourinary: Reports: Dysuria, Frequency. Denies: Hematuria Musculoskeletal: Denies: Back pain, Extremity Pain Skin: Denies: Rash, Wounds Neurological: Denies: Headache, Weakness, Numbness Physical Exam Vital Signs/Narrative: Vital Signs Temp Pulse Resp BP Pulse Ox 07/18/19 20:56 98.0 F 120 H 18 158/97 H 99 General: Well nourished, Well developed, No Acute Distress Head: Normocephalic, Atraumatic Eyes: Perrl, EOMI ENT: Moist mucous membranes, No rhinorrhea Neck: Supple, Nontender Cardiovascular: Regular rate, Regular rhythm, No murmurs Respiratory: No distress, CTA bilaterally, Chest nontender Abdomen: Soft, Nontender, Nondistended, Normal bowel sounds Back: Nontender, Normal Inspection Extremities: Nontender, No edema Skin: Normal color, No rash Neurological: Alert, Oriented x3, Cranial nerves II-XII grossly intact, Normal Strength, Normal Sensation Psychological: Normal affect, Normal Mood Diagnostic/Tx/Re-eval - Medical Decision Making Urine analysis and urine obtained. Urine testing only shows a mild amount of microscopic blood. No evidence of infection. is negative. At this time the patient may be having just inflammation to her urethra. She denies sexual transmitted infection. She is having some mild spotting. I feel she can follow-up as an outpatient for further evaluation of this. Do not feel she has an acute emergent infection. She is counseled to avoid illicit drugs ED Disposition - Plan for ED Patient: Disposition: Home or Assisted Living Diagnosis: Dysuria Instructions: Abdominal Pain Referrals: Ivan Albarran DO [NON CLINICAL AFFILIATE] -
[2019-07-18 22:48] LABS: Bacteria 0 SEEN /hpf (None Seen); Mucous, Urine 0 SEEN /hpf (<or=2+)
[2019-07-18 22:51] LABS: Color, Urine Yellow (Yellow); Glucose, Dipstick Normal (Normal); Ketone-Dipstick Negative (Negative); Leukocyte Esterase-Dipstick Negative /ul (Negative); Nitrite-Dipstick Negative (Negative); Occult Blood-Urine 250 /ul (Negative); Protein-Dipstick Negative (Negative); Urine Bilirubin Dipstick Negative (Negative); Urine Clarity Clear (Clear); Urine Urobilinogen Normal (Normal); Urine pH 6.5 (5.0 - 8.0)
[2019-07-18 22:55] LABS: Internal QC Validated? YES +Cl - CLEAR BKGD; Pregnancy, Urine Negative Negative
[2019-07-18 22:57] LABS: Renal Epithelial Cells 0-5 SEEN /hpf (0-5); Squamous Epithelial Cells - UA 0-5 SEEN /hpf (5-10)
[2019-07-18 22:59] LABS: Red Blood Cells-Urine 0-5 SEEN /hpf (0-5); White Blood Cells 0-5 SEEN /hpf (0-5)
[2019-07-18] MEDS: Ibuprofen 400 MG Tablet 800 MG PO (23:16)
[2019-07-18 23:17] VITALS: RESP 16
== END 2019-07-18 23:20 | disposition home or self-care (01) ==
PROVIDERS: Emergency Provider Emergency Medicine
DX: R30.0 Dysuria (principal); R35.0 Frequency of micturition; R31.29 Other microscopic hematuria; N93.9 Abnormal uterine and vaginal bleeding, unspecified; R10.30 Lower abdominal pain, unspecified; J45.909 Unspecified asthma, uncomplicated; M19.90 Unspecified osteoarthritis, unspecified site; Z86.2 Personal history of diseases of the blood and blood-forming organs and certain disorders involving the immune mechanism; Z86.19 Personal history of other infectious and parasitic diseases; Z87.442 Personal history of urinary calculi; F15.10 Other stimulant abuse, uncomplicated; F10.99 Alcohol use, unspecified with unspecified alcohol-induced disorder; F17.200 Nicotine dependence, unspecified, uncomplicated
CPT/HCPCS: 81001; 81025; 99283

== ENCOUNTER 2019-09-24 19:55 | Emergency (ER) | payer MEDICAID, SELFPAY ==
[2019-09-24 19:55] VITALS: BP 181/100; PULSE 103; RESP 18; TEMP 36.9; O2SAT 100; BMI 24.3
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
--- NOTE | 2019-09-24 21:14 | ED.RN ---
PT wants to wait on medication administration until her friend comes. We will hold off on IV as well. aware.
[2019-09-24 23:08] VITALS: BP 146/96; PULSE 86; RESP 16; O2SAT 97
== END 2019-09-24 23:09 | disposition home or self-care (01) ==
PROVIDERS: Emergency Provider Emergency Medicine
DX: R51 Headache (principal); I10 Essential (primary) hypertension; F15.10 Other stimulant abuse, uncomplicated; J45.909 Unspecified asthma, uncomplicated; Z72.0 Tobacco use
CPT/HCPCS: 70450; 70486; 99285

== ENCOUNTER 2019-10-29 19:07 | Emergency (ER) | payer MEDICAID, SELFPAY ==
[2019-10-29 19:07] VITALS: BP 169/109; PULSE 89; RESP 16; TEMP 36.4; O2SAT 100; BMI 23.3
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
[2019-10-29] MEDS: Ondansetron 4 MG/2 ML Vial IV (19:28)
[2019-10-29] MEDS: HYDROmorphone 0.5 MG/0.5 ML SYRINGE IV (19:29)
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
[2019-10-29 20:13] VITALS: BP 198/115; PULSE 65; RESP 18; O2SAT 99
[2019-10-29 20:50] VITALS: BP 188/126; BP 191/116; PULSE 65; PULSE 69; RESP 20; RESP 21; O2SAT 100; O2SAT 98
[2019-10-29 20:56] VITALS: BP 204/71; PULSE 72; RESP 18; O2SAT 100
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
[2019-10-29 21:01] VITALS: BP 179/113; PULSE 61; RESP 15; O2SAT 100; O2SAT 98
[2019-10-29] MEDS: Propofol 200 MG/20 ML Vial IV BOLUS (21:02)
[2019-10-29 21:07] VITALS: BP 173/113; BP 173/119; PULSE 61; PULSE 73; RESP 16; RESP 17; O2SAT 100; O2SAT 94
[2019-10-29] MEDS: HYDROcodone Bitartrate/Apap 5/325 Tablet PO (21:22)
== END 2019-10-29 22:03 | disposition home or self-care (01) ==
PROVIDERS: Emergency Provider Emergency Medicine
DX: S43.004A Unspecified dislocation of right shoulder joint, initial encounter (principal); F17.200 Nicotine dependence, unspecified, uncomplicated; W19.XXXA Unspecified fall, initial encounter
CPT/HCPCS: 23655; 73030; 96365; 96375; 99285; J7030; A4216; J2405

== ENCOUNTER 2020-02-18 11:31 | Emergency (ER) | payer MEDICAID, SELFPAY ==
[2020-02-18] VITALS (11 sets, daily range): BP systolic 106–193; BP diastolic 70–162; PULSE 62–107; RESP 14–16; TEMP 36.4; O2SAT 95–100; BMI 27.3
--- NOTE | 2020-02-18 11:51 | EKG12_ITS ---
Test Reason : Blood Pressure : / mmHG Vent. Rate : 107 BPM Atrial Rate : 107 BPM P-R Int : 166 ms QRS Dur : 092 ms QT Int : 368 ms P-R-T Axes : 031 -09 006 degrees QTc Int : 491 ms Sinus tachycardia Possible Left atrial enlargement Incomplete right bundle branch block Left ventricular hypertrophy Abnormal ECG Confirmed by NADIA HOPKINS ([id number]), acquisitions editor CURTIS WILLOUGHBY ([id number]) on 02/20/2020 11:15:17 AM Referred By: BARBARA Confirmed By:NADIA HOPKINS
[2020-02-18] MEDS: Ziprasidone IM 20 MG/ML VIAL IM (12:10)
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
[2020-02-18 12:36] LABS: Absolute Lymphocyte Count 2.53 X10^3/uL (0.83-4.51); Absolute Neutrophil Count 5.8 X10^3/uL (2.0-7.7); Basophil# 0.07 X10^3/uL; Basophil% 0.8 % (0-1); Eosinophil# 0.04 X10^3/uL; Eosinophils% 0.4 % (0-5); Hemoglobin 10.3 g/dL (12.0-15.0); Lymphocyte # 2.53 X10^3/ul (4.0); Lymphocyte % 27.3 % (19-41); Mean Corp Hgb Conc 30.3 g/dL (32-36); Mean Corpuscular Hgb 24.1 pg (27.0-32.0); Mean Corpuscular Volume 79.4 fL (81-99); Mean Platelet Vol. 8.3 fl (6.2-12.0); Monocyte# 0.79 X10^3/uL; Monocyte% 8.5 % (0-10); NRBC Flagged by Analyzer 0 % (0-5); Neutrophil # 5.82 X10^3/uL (2.7-7.7); Neutrophil % 62.7 % (47-70); Platelet Count 395 K/mm3 (150-450); RBC Distribution Width CV 17.3 % (11.6-14.6); RBC Distribution Width SD 49.2 fl (35.1-43.9); Red Blood Count 4.28 M/mm3 (4.2-5.4); White Blood Count 9.3 K/mm3 (4.4-11.0)
[2020-02-18 12:46] LABS: Color, Urine Yellow (Yellow); Glucose, Dipstick Normal (Normal); Ketone-Dipstick 50 mg/dl (Negative); Leukocyte Esterase-Dipstick 100 /ul (Negative); Nitrite-Dipstick Negative (Negative); Occult Blood-Urine 10 /ul (Negative); Protein-Dipstick 100 mg/dl (Negative); Specific Gravity, Urine 1.025 (1.002-1.030); Urine Bilirubin Dipstick 1 mg/dL (Negative); Urine Clarity Clear (Clear); Urine Urobilinogen 1 mg/dl (Normal)
[2020-02-18 12:48] LABS: Hyaline Cast 0-5 SEEN /lpf (0-5); Mucous, Urine 3+ /hpf (<or=2+)
[2020-02-18 12:49] LABS: Bacteria 3+ /hpf (None Seen); Squamous Epithelial Cells - UA 5-10 SEEN /hpf (5-10); White Blood Cells 5-10 SEEN /hpf (0-5)
[2020-02-18 12:50] LABS: ALB/GLOB Ratio 1.2 RATIO (0.9-2.4); AST(SGOT) 18 U/L (15-37); Alanine Aminotransfer ALT/SGPT 23 U/L (13-56); Albumin, Serum 4.4 g/dL (3.2-5.0); Alkaline Phosphatase 76 U/L (45-117); Anion Gap 4 (5-15); BUN 10 mg/dL (7-18); BUN/Creat Ratio 12.1 RATIO (10-20); Calcium,Total 8.6 mg/dL (8.5-10.1); Chloride 109 mmol/L (98-107); Creatinine, Serum 0.82 mg/dL (0.55-1.02); EST Glomerular Filtration Rate 83 mL/min (>60); Est Glom Filt Rate - Afr Amer 100 mL/min (>60); Estimated Creatinine Clearance 95.68 ml/min; Globulin 3.6 g/dL (2.2-4.2); Glucose 97 mg/dL (74-106); Potassium 3.2 mmol/L (3.5-5.1); Sodium Level 140 mmol/L (136-145); Thyroid Stim Hormone (TSH) 1.15 uIU/mL (0.358-3.74)
[2020-02-18 12:50] LABS: Red Blood Cells-Urine 0-5 SEEN /hpf (0-5)
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
--- NOTE | 2020-02-18 13:17 | ED.RN ---
PT ELOPED ER, FOLLOWED BY ER STAFF, SECURITY AND HRO. ABLE TO BE REDIRECTED AND RETURN TO ER BY HRO. CURRENTLY RESTING IN BED WITH EYES CLOSED.
[2020-02-18 13:26] LABS: Internal QC Validated? YES +Cl - CLEAR BKGD; Pregnancy, Serum, hCG Quali. NEGATIVE Negative
[2020-02-18 13:38] LABS: Amphetamine Urine VISTA POSITIVE (<1000 ng/mL); Barbiturate Urine VISTA NEGATIVE (< 200 ng/mL); Benzodiazepine Urine VISTA NEGATIVE (< 200 ng/mL); Cocaine Urine VISTA NEGATIVE (< 300 ng/mL); Ecstacy Urine VISTA POSITIVE (< 500 ng/mL); Methadone Urine VISTA NEGATIVE (< 300 ng/mL); PCP Urine VISTA NEGATIVE (< 25 ng/mL); THC Urine VISTA NEGATIVE (< 50 ng/mL); Vista UDS pH Range 5
--- NOTE | 2020-02-18 13:45 | CM.ED ---
Social Work Telephone call to [facility]. Referral faxed. Pending review. Sharon Cast HUMAN RESOURCES FILE CLERK, BARB
--- NOTE | 2020-02-18 14:39 | CM.ED ---
Social Work Telephone call from Anaya Abreu. economic development director declining. Telephone call to [facility]. Referral made. Clinical information faxed. Pending approval. Sharon CARROLL, BARB
[2020-02-18] MEDS: 0.9% Normal Saline 1,000 ML 999 ML IV (16:21)
--- NOTE | 2020-02-18 16:35 | CM.ED ---
Social Work Telephone call from Lenka Roman. Requesting for CK and COVID test results to be faxed. Updated Dr. Edgar. CK and COVID test ordered. Pending results. Will fax when obtained. Sharon Cast MSW, HELP DESK MANAGER
[2020-02-18] MEDS: Potassium Chloride 10mEq/100mL 10 MEQ/100 ML IV.SOLN. 100 MEQ IV BOLUS (17:05)
[2020-02-18 17:21] LABS: CPK Total, Creatine Kinase 198 U/L (26-192)
[2020-02-18] MEDS: DiphenhydrAMINE 50 MG/ML Syringe IV (18:07)
[2020-02-18] MEDS: LORazepam 2 MG/ML Syringe IV (18:07)
[2020-02-18 18:33] LABS: Probe Check PASS; Specimen Processing Control PASS
--- NOTE | 2020-02-18 18:50 | CM.ED ---
Social Work Updated labs obtained and faxed to [facility]. Sharon Cast APPLICATIONS SUPPORT LEAD, BARB
[2020-02-18] MEDS: Ceftriaxone 1 GM/50 ML BAG IV (18:56)
--- NOTE | 2020-02-18 20:56 | CM.ED ---
Social Work Telephone call from Nelly Roman. Patient has been accepted. Patient to be admitted to the Dual Diagnosis unit room 301A. Dr. Baez is admitting. Nurse to call report to [phone]. Updated medical team. Luna Slip faxed to [facility]. Sharon CARROLL, BARB
== END 2020-02-18 23:05 ==
PROVIDERS: Emergency Provider Emergency Medicine
DX: F23 Brief psychotic disorder (principal); F19.10 Other psychoactive substance abuse, uncomplicated; N39.0 Urinary tract infection, site not specified; F17.200 Nicotine dependence, unspecified, uncomplicated
CPT/HCPCS: 36415; 80053; 80307; 80320; 81001; 82550; 84443; 84484; 84703; 85025; 87086; 87088; 87635; 93005; 94799; 96361; 96365; 96366; 96367; 96372; 96375; 99283; J7030; J7050; A4216; G0480; J3486; J3490; U0003

== ENCOUNTER 2020-03-04 02:58 | Emergency (ER) | payer MEDICAID, SELFPAY ==
[2020-02-18 11:32] VITALS: BMI 27.3
[2020-03-04 03:00] VITALS: BP 157/86; PULSE 96; RESP 18; TEMP 36.6; O2SAT 99; BMI 22.6
[2020-03-04 03:04] VITALS: O2SAT 99
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
[2020-03-04] MEDS: Ibuprofen 600 MG Tablet PO (03:11)
[2020-03-04 04:08] LABS: Internal QC Validated? YES +Cl - CLEAR BKGD; Pregnancy, Serum, hCG Quali. NEGATIVE Negative
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
[2020-03-04 12:07] VITALS: BP 133/78; PULSE 79; RESP 18; O2SAT 99
== END 2020-03-04 13:35 | disposition home or self-care (01) ==
PROVIDERS: Emergency Provider Emergency Medicine
DX: S02.2XXA Fracture of nasal bones, initial encounter for closed fracture (principal); S00.83XA Contusion of other part of head, initial encounter; F10.129 Alcohol abuse with intoxication, unspecified; Y04.0XXA Assault by unarmed brawl or fight, initial encounter
CPT/HCPCS: 36415; 70450; 70486; 72125; 73090; 80320; 84703; 99285; G0480

== ENCOUNTER 2022-06-30 09:30 | Emergency (ER) | payer MEDICAID, SELFPAY ==
[2022-06-30 09:31] VITALS: BP 154/98; PULSE 72; RESP 16; TEMP 36.7; O2SAT 98; BMI 23.6
--- NOTE | 2022-06-30 10:49 | EDS_ITS ---
HPI History of Present Illness Chief Complaint: General Illness Narrative Narrative: 36-year-old female, states she is intermittently without housing, slept outside in the cold yesterday without a blanket. She has multiple complaints but state states she felt lightheaded and dizzy this morning, as if she were going to pass out. She is tired. She denies any dysuria or hematuria. She was slightly nauseated but has not had vomiting. No diarrhea. No significant past medical history. She was able to eat a little something today but states she has not been drinking fluids. [facility] Medical History Hypertension Nexplanon removal (~04/05/16) Home Medications NK 06/30/22 [History Last Taken Unknown] Allergy/AdvReac Type Severity Reaction Status Date / Time spider venom Allergy Anaphylaxis Verified 10/29/19 19:10 strawberry Allergy Hives Verified 10/29/19 19:10 [place] [employer] AdvReac Rash Verified 10/29/19 19:10 Family History Mother Cancer Thyroid Breast cancer Father Hypertension CVA (cerebral vascular accident) Brother Asthma Grandfather Hypertension CVA (cerebral vascular accident) Abdominal aneurysm Surgical History H/O tooth extraction H/O wisdom tooth extraction Ingrown toenail Social History number of children: 3 current occupational status: unemployed Smoking Status: Current every day smoker tobacco type: cigarettes alcohol intake: current substance use type: other details: meth what type of physical activity do you participate in: walking seatbelt use: always ROS ROS ED ROS Narrative Constitutional: No fever, no chills. HEENT: No sore throat. No neck pain. No loss of vision. No rhinorrhea. Cardiovascular: No chest pain. No palpitations. No pedal edema. Respiratory: No cough, no shortness of breath. Abdominal: No abdominal pain. Intermittent nausea. No vomiting. Genitourinary: No dysuria. No hematuria. Musculoskeletal: No myalgias. No arthralgias. Neurologic: No headaches. Positive dizziness. Positive lightheadedness. Skin: No rash. No change in color. Psychiatric: No depression. No anxiety. EXAM Physical Exam Narrative Exam Narrative: Afebrile. Vital signs noted. HEENT: Normocephalic. Atraumatic. PERRL, EOMI. Neck soft and supple. No point tenderness or step off. Moist mucous membranes. Cardiovascular: Regular rate and rhythm. No murmurs, rubs, or gallops appreciated. Respiratory: No tachypnea. Lungs clear to auscultation bilaterally. Gastrointestinal: Abdomen soft, nontender, with normoactive bowel sounds. No rebound or guarding. Neurological: Awake. Alert. Nonfocal, nonlateralizing. Skin: No rash. Normal color. No pallor. Musculoskeletal: No pedal edema. Full range of motion extremities. Const Vital Signs: 06/30/22 09:31 06/30/22 09:39 Temperature 98.0 F Temperature Source Oral Pulse Rate 72 Respiratory Rate 16 Respiratory Effort Normal Non-Labored Blood Pressure 154/98 H Blood Pressure Mean 116 Pulse Ox 98 Oxygen Delivery Method Room Air MDM MDM MDM Narrative Medical decision making narrative: Upon entering the room, patient is resting comfortably. She does have slightly elevated blood pressure but is asymptomatic with it. She states she has past medical history of hypertension but is currently not on medication secondary to her social situation. I offered to have social work speak with her but she declined. I will check her blood sugar and give her a p.o. challenge. Her blood sugar is normal at 82. I will also check a urinalysis for ketones/dipstick urine. Urinalysis shows no evidence of infection with negative nitrites. There are 5 ketones. She will drink plenty of oral fluids. At this point in time, I do feel that her medical screening examination is negative. She can follow-up with primary care/[facility]. Disposition is discharged home in stable condition. Lab Data Attestation: I reviewed the patient's lab results. Labs: Laboratory Results - last 24 hr 06/30/22 06/30/22 10:12 10:50 Urine Color Yellow Urine Clarity Sl. Cloudy Urine pH 6.0 Ur Specific Isom 1.025 Urine Protein 30 H Urine Glucose (UA) Normal Urine Ketones 5 H Urine Occult Blood 250 H Urine Nitrite Negative Urine Bilirubin 1 H Urine Urobilinogen Normal Ur Leukocyte Esterase 100 H POC Glucose 82 Discharge Plan Triage Chief Complaint: General Illness ED Provider: Brooks Monzon Dx/Rx/DC Orders Clinical Impression: Lightheadedness, Dizziness Instructions: ED Dizziness, Uncertain Cause, ED Near-Fainting, Uncertain Cause Prescriptions: No Action NK Primary Care Provider: Care Physician,No Primary Referrals: Jo Hernandez [Non-Staff] - As Needed Care Physician,No Primary [Primary Care Provider] - Disposition Disposition: Home, Self Care
[2022-06-30 10:57] LABS: Color, Urine Yellow (Yellow); Glucose, Dipstick Normal (Normal); Ketone-Dipstick 5 mg/dl (Negative); Leukocyte Esterase-Dipstick 100 /ul (Negative); Nitrite-Dipstick Negative (Negative); Occult Blood-Urine 250 /ul (Negative); Protein-Dipstick 30 mg/dl (Negative); Specific Gravity, Urine 1.025 (1.002-1.030); Urine Clarity Sl. Cloudy (Clear); Urine Urobilinogen Normal (Normal)
[2022-06-30 11:05] LABS: Urine Bilirubin Dipstick 1 mg/dL (Negative)
[2022-06-30 11:10] LABS: Bedside Glucose 82 mg/dL (74-106)
== END 2022-06-30 11:48 | disposition home or self-care (01) ==
PROVIDERS: Emergency Provider Emergency Medicine; Visit Provider Emergency Medicine
DX: R42 Dizziness and giddiness (principal); R55 Syncope and collapse; R11.0 Nausea; F17.210 Nicotine dependence, cigarettes, uncomplicated; I10 Essential (primary) hypertension
CPT/HCPCS: 81002; 82962; 99284

== ENCOUNTER 2023-01-11 04:25 | Emergency (ER) | payer MEDICAID, SELFPAY ==
[2023-01-11 04:27] VITALS: BP 168/105; PULSE 109; RESP 24; TEMP 36.4; O2SAT 100; BMI 21.5
--- NOTE | 2023-01-11 05:21 | EX.ED.DYSGE1 ---
HPI History of Present Illness Chief Complaint: General Illness Informant: patient Onset/Context/Timing Onset: Today Context: Gradual Onset Timing: Continuous Quality: Fatigue Location: Generalized Worsened by: Nothing Relieved by: Nothing Narrative Narrative: Presents with vaginal bleeding and feeling dehydrated. Patient states she has not been drinking much water over the past couple days and thinks she may be dehydrated. Patient states she was having heavy vaginal bleeding with her most recent menstrual period. Patient denies any pain. Patient denies any fevers or chills. Patient does admit to using methamphetamines. Patient states she used some tonight. Patient states that she has been feeling paranoid and is having hallucinations. [facility] Medical History Hypertension Nexplanon removal (~04/05/16) Home Medications NK 06/30/22 [History Last Taken Unknown] Allergy/AdvReac Type Severity Reaction Status Date / Time sertraline [From Zoloft] Allergy NEEDS Verified 01/11/23 04:39 FOLLOW-UP spider venom Allergy Anaphylaxis Verified 01/11/23 04:39 strawberry Allergy Hives Verified 01/11/23 04:39 [place] [employer] AdvReac Rash Verified 01/11/23 04:39 Family History Mother Cancer Thyroid Breast cancer Father Hypertension CVA (cerebral vascular accident) Brother Asthma Grandfather Hypertension CVA (cerebral vascular accident) Abdominal aneurysm Surgical History H/O tooth extraction H/O wisdom tooth extraction Ingrown toenail Social History number of children: 3 current occupational status: unemployed Smoking Status: Current every day smoker tobacco type: cigarettes alcohol intake: current substance use type: other details: meth what type of physical activity do you participate in: walking seatbelt use: always ROS ROS ED Constitutional Constitutional ED: Denies chills or fever(s) Eyes Eyes: Denies blurry vision or change in vision ENT ENT ED: Denies rhinorrhea or sore throat Cardiovascular Cardiovascular: Denies chest pain or palpitations Respiratory/Chest Respiratory/Chest: Reports dyspnea; Denies cough Gastrointestinal Gastrointestinal: Reports nausea; Denies vomiting Genitourinary Genitourinary ED: Denies dysuria or hematuria Musculoskeletal Musculoskeletal: Denies back pain or neck pain Integumentary Reports rash; Denies abscess Neurologic Neurologic: Denies headache(s) or weakness Allergic/Immunologic Allergic/Immunologic ED: Denies mouth swelling or urticaria EXAM Physical Exam Const Vital Signs: 01/11/23 04:27 01/11/23 06:44 Temperature 97.5 F L Temperature Source Oral Pulse Rate 109 H 90 Respiratory Rate 24 H 16 Blood Pressure 168/105 H 148/90 H Blood Pressure Mean 126 109 Pulse Ox 100 100 Oxygen Delivery Method Room Air Positive well nourished and well developed General Appearance ED: well developed and NAD HEENT Reports moist mucous membranes Neck supple and no JVD Resp normal respiratory effort and clear to auscultation bilaterally Cardio regular rhythm Rate: tachycardic GI non-tender and non-distended Palpation: soft Extremity General Extremety ED: Negative for edema or tenderness General Extremity: Negative for edema Neuro CN's II-XII intact bilaterally and no sensory deficits noted Sensorium / Orientation: alert Motor Exam: strength 5/5 throughout Psych Attitude: agitated Mood & Affect: anxious MDM MDM MDM Narrative Medical decision making narrative: Differential diagnosis includes dehydration, substance abuse, anemia, electrolyte abnormality. Basic metabolic profile will be obtained to assess for electrolyte abnormality and renal function. CBC will be obtained to assess for anemia and leukocytosis. Urinalysis will be obtained to assess for urinary tract infection. Lab Data Attestation: I reviewed the patient's lab results. Lab results narrative: CBC was reviewed and showed a stable anemia with a hemoglobin of 9.1 and hematocrit 31.3. Platelets were normal. Basic metabolic profile was reviewed and was within normal limits. Labs: Laboratory Results - last 24 hr 01/11/23 01/11/23 05:42 05:42 WBC 7.4 RBC 4.21 Hgb 9.1 L Hct 31.3 L MCV 74.3 L MCH 21.6 L MCHC 29.1 L RDW Std Deviation 46.1 H RDW Coeff of Joanne 17.5 H Plt Count 349 MPV 8.0 Immature Gran % (Auto) 0.700 Neut % (Auto) 52.7 Lymph % (Auto) 33.5 [place] % (Auto) 9.6 Eos % (Auto) 2.4 Baso % (Auto) 1.1 H Absolute Neuts (auto) 3.9 Absolute Lymphs (auto) 2.47 Nucleated RBC % 0.4 Sodium 139 Potassium 3.5 Chloride 105 Carbon Dioxide 28.0 Anion Gap 6 BUN 13 Creatinine 0.82 Estim Creat Clear Calc 99.02 Est GFR (MDRD) Af Amer 99 Est GFR (MDRD) Non-Af 82 BUN/Creatinine Ratio 15.8 Glucose 84 Calcium 8.9 Treatment and Re-Evaluation :: Patient was given IV fluids. Patient refused urine test. Patient was sleeping on reevaluation. Patient's vital signs improved. Patient was instructed to drink plenty of fluids. Patient was instructed to follow-up with her primary care physician in 5 to 7 days. Smoking cessation was discussed. Drug use cessation was discussed. Patient understood and was agreeable with the plan. All questions were answered. Discharge Plan Triage Chief Complaint: General Illness ED Provider: Ryan Hogan Dx/Rx/DC Orders Clinical Impression: Anemia, Methamphetamine abuse Instructions: ED Anemia, Type Not Specified (Adult), ED Drug Abuse Prescriptions: No Action NK Primary Care Provider: Care Physician,No Primary Referrals: Jo Hernandez [Non-Staff] - 5-7 Days Care Physician,No Primary [Primary Care Provider] - [facility] [Non-Staff] - 3-5 Days Disposition Disposition: Home, Self Care Discharge Date/Time: 01/11/23 06:45
[2023-01-11] MEDS: 0.9% Normal Saline 1,000 ML 1000 ML IV (05:41)
--- NOTE | 2023-01-11 05:44 | ED.RN ---
INFORMED PT OF UA ORDER AND NEED FOR URINE SAMPLE. SHE REPORTS WE DON'T NEED THAT WE CAN SKIP THAT, I KNOW I DON'T HAVE AN INFECTION.
[2023-01-11 05:49] LABS: Absolute Lymphocyte Count 2.47 X10^3/uL (0.83-4.51); Absolute Neutrophil Count 3.9 X10^3/uL (2.0-7.7); Basophil# 0.08 X10^3/uL; Basophil% 1.1 % (0-1); Eosinophil# 0.18 X10^3/uL; Eosinophils% 2.4 % (0-5); Hematocrit 31.3 % (37-47); Hemoglobin 9.1 g/dL (12.0-15.0); Lymphocyte # 2.47 X10^3/ul (0.83-4.51); Lymphocyte % 33.5 % (19-41); Mean Corp Hgb Conc 29.1 g/dL (32-36); Mean Corpuscular Hgb 21.6 pg (27.0-32.0); Mean Corpuscular Volume 74.3 fL (81-99); Monocyte# 0.71 X10^3/uL; Monocyte% 9.6 % (0-10); NRBC Flagged by Analyzer 0.4 % (0-5); Neutrophil # 3.89 X10^3/uL (2.7-7.7); Neutrophil % 52.7 % (47-70); Platelet Count 349 K/mm3 (150-450); RBC Distribution Width CV 17.5 % (11.6-14.6); RBC Distribution Width SD 46.1 fl (35.1-43.9); Red Blood Count 4.21 M/mm3 (4.2-5.4); White Blood Count 7.4 K/mm3 (4.4-11.0)
[2023-01-11 06:06] LABS: Anion Gap 6 (5-15); BUN 13 mg/dL (7-18); BUN/Creat Ratio 15.8 RATIO (10-20); Calcium,Total 8.9 mg/dL (8.5-10.1); Chloride 105 mmol/L (98-107); Creatinine, Serum 0.82 mg/dL (0.55-1.02); EST Glomerular Filtration Rate 82 mL/min (>60); Est Glom Filt Rate - Afr Amer 99 mL/min (>60); Estimated Creatinine Clearance 99.02 ml/min; Glucose 84 mg/dL (74-106); Potassium 3.5 mmol/L (3.5-5.1); Sodium Level 139 mmol/L (136-145)
[2023-01-11 06:44] VITALS: BP 148/90; PULSE 90; RESP 16; O2SAT 100
== END 2023-01-11 06:45 | disposition home or self-care (01) ==
PROVIDERS: Emergency Provider Emergency Medicine; Visit Provider Emergency Medicine
DX: D64.9 Anemia, unspecified (principal); F15.10 Other stimulant abuse, uncomplicated; F17.210 Nicotine dependence, cigarettes, uncomplicated
CPT/HCPCS: 80048; 85025; 96360; 99285; J7030; A4216

== ENCOUNTER 2023-10-27 17:16 | Emergency (ER) | payer MEDICAID, SELFPAY ==
[2023-10-27 17:18] VITALS: BP 169/95; PULSE 74; RESP 18; TEMP 35.9; O2SAT 99; BMI 26.7
--- NOTE | 2023-10-27 17:55 | EDS_ITS ---
HPI History of Present Illness Chief Complaint: Anxiety Informant: patient and EMS Narrative Narrative: Patient presents saying that she has been having a migraine today came on gradually it has been there for less than 12 hours, mostly left frontal retro- orbital headache throbbing with some photophobia and nausea no vomiting no fevers or chills or neck stiffness. She states she has also been having some involuntary movements of both of her arms and less in her legs, that has been intermittent for a while she cannot tell me how long, but does not sound necessarily new but may be a little worse today. She states I do not know what seizure feels like, but it seems a little worse today. She does not have a history of known seizures. She has had no episodes of loss of consciousness. She is currently living at [facility] for addiction issues with regards to alcohol and methamphetamine. She has been there for 2 weeks, she states she has been clean for 5 months. Denies any recent injuries including her head. Currently is on Augmentin which she has been taking for about a week for dental pain. She states one of her teeth broke off. [facility] Medical History (Updated 10/27/23 @ 19:[address] Josue Lake MD) Arthritis Asthma Dysthymic disorder Heartburn Hyperlipemia Hypertension Hypertension Methamphetamine abuse Nexplanon removal (~04/05/16) Home Medications NK 06/30/22 [History Last Taken Unknown] Allergy/AdvReac Type Severity Reaction Status Date / Time sertraline [From Zoloft] Allergy NEEDS Verified 10/27/23 17:32 FOLLOW-UP spider venom Allergy Anaphylaxis Verified 10/27/23 17:32 strawberry Allergy Hives Verified 10/27/23 17:32 [place] [employer] AdvReac Rash Verified 10/27/23 17:32 Family History Mother Cancer Thyroid Breast cancer Father Hypertension CVA (cerebral vascular accident) Brother Asthma Grandfather Hypertension CVA (cerebral vascular accident) Abdominal aneurysm Surgical History H/O tooth extraction H/O wisdom tooth extraction Ingrown toenail Social History number of children: 3 current occupational status: unemployed Smoking Status: Current every day smoker tobacco type: cigarettes alcohol intake: current substance use type: other details: meth what type of physical activity do you participate in: walking seatbelt use: always ROS ROS ED Constitutional Constitutional ED: Denies chills or fever(s) Eyes Eyes: Reports blurry vision; Denies diplopia ENT ENT ED: Reports dental pain; Denies ear pain or sore throat Cardiovascular Cardiovascular: Denies chest pain or palpitations Respiratory/Chest Respiratory/Chest: Denies cough or dyspnea Gastrointestinal Gastrointestinal: Reports nausea; Denies abdominal pain, diarrhea or vomiting Genitourinary Genitourinary ED: Denies dysuria or urinary frequency Musculoskeletal Musculoskeletal: Denies back pain or myalgias Integumentary Denies abscess or rash Neurologic Neurologic: Reports as per HPI, headache(s) and tremor(s); Denies paresthesias, syncope or weakness EXAM Physical Exam Const Vital Signs: 10/27/23 17:18 Temperature 96.6 F L Temperature Source Temporal Pulse Rate 74 Respiratory Rate 18 Blood Pressure 169/95 H Blood Pressure Mean 119 Pulse Ox 99 Oxygen Delivery Method Room Air HEENT Reports normocephalic and moist mucous membranes HEENT Narrative: Very poor dentition with most teeth decayed down to the gumline. No abscess. No facial asymmetry. No trismus. Tongue normal no elevation. atraumatic Eyes PERRL, EOMs intact bilaterally and conjunctivae normal Eyes Narrative: photophobia Neck no lymphadenopathy, supple and no meningeal signs Chest Wall inspection of chest normal and palpation of chest normal Resp normal respiratory effort and clear to auscultation bilaterally Cardio regular rate, regular rhythm and no murmurs Rate: Negative for tachycardic GI non-tender and non-distended Palpation: soft Extremity normal to inspection and full ROM Neuro oriented x3 and CN's II-XII intact bilaterally Neuro Narrative: Normal gait. During exam patient is performing normal voluntary movements with all 4 extremities and at 1 point develops a tremor of her left hand that does not appear to be seizure-like convulsions. She is able to walk and continues to have the tremor of her left hand only. Sensorium / Orientation: awake and alert Speech: speech normal Gait (Neuro): normal gait Motor Exam: strength 5/5 throughout Psych mental status grossly normal Skin Lesions: no lesions Rashes: no rashes MDM MDM MDM Narrative Medical decision making narrative: EMS systolic blood pressure 176, upon checking her here it is 169 we will continue to monitor as we are treating her migraine which may also help her tremor. After Reglan, Benadryl, Toradol, she is feeling much better, little somnolent, her migraine is gone and the tremor is gone as well. Reassured, and she will be discharged when she is more alert and able to walk. Given that the patient has not had alcohol in at least 2 weeks, I do not think this is acute alcohol withdrawal or any other emergent condition at this time. Discharge Plan Triage Chief Complaint: Anxiety ED Provider: Josue Lake Dx/Rx/DC Orders Clinical Impression: Headache, migraine, Tremor Instructions: ED, Migraine (Classical) Prescriptions: No Action NK Primary Care Provider: Care Physician,No Primary Referrals: Jo Hernandez [Non-Staff] - As Needed Disposition Disposition: Home, Self Care
[2023-10-27] MEDS: DiphenhydrAMINE 50 MG/ML Syringe 25 MG IV (18:25)
[2023-10-27] MEDS: Ketorolac 15 MG/ML Vial IV (18:26)
[2023-10-27] MEDS: Metoclopramide 10 MG/2 ML Vial 5 MG IV (18:26)
[2023-10-27 19:19] VITALS: BP 128/77; PULSE 76; RESP 16; TEMP 36.6; O2SAT 100
== END 2023-10-27 19:25 | disposition home or self-care (01) ==
PROVIDERS: Emergency Provider Emergency Medicine; Visit Provider Emergency Medicine
DX: G43.909 Migraine, unspecified, not intractable, without status migrainosus (principal); R25.1 Tremor, unspecified; F17.210 Nicotine dependence, cigarettes, uncomplicated
CPT/HCPCS: 96374; 96375; 99283; J7030; A4216

== ENCOUNTER → 2024-03-19 | Outpatient (CLI) | payer MEDICAID, SELFPAY ==
[2024-03-19 13:08] LABS: Absolute Lymphocyte Count 2.93 X10^3/uL (0.83-4.51); Absolute Neutrophil Count 7.9 X10^3/uL (2.0-7.7); Basophil# 0.11 X10^3/uL; Basophil% 0.9 % (0-1); Eosinophils% 1.7 % (0-5); Hematocrit 38.2 % (37-47); Hemoglobin 11.8 g/dL (12.0-15.0); Lymphocyte # 2.93 X10^3/ul (0.83-4.51); Lymphocyte % 24.5 % (19-41); Mean Corp Hgb Conc 30.9 g/dL (32-36); Mean Corpuscular Hgb 24.4 pg (27.0-32.0); Mean Corpuscular Volume 79.1 fL (81-99); Mean Platelet Vol. 8.7 fl (6.2-12.0); Monocyte# 0.72 X10^3/uL; NRBC Flagged by Analyzer 0 % (0-5); Neutrophil # 7.94 X10^3/uL (2.7-7.7); Neutrophil % 66.5 % (47-70); Platelet Count 442 K/mm3 (150-450); RBC Distribution Width CV 17.4 % (11.6-14.6); RBC Distribution Width SD 50.3 fl (35.1-43.9); Red Blood Count 4.83 M/mm3 (4.2-5.4)
[2024-03-19 14:43] LABS: ALB/GLOB Ratio 0.9 RATIO (0.9-2.4); AST(SGOT) 15 U/L (15-37); Alanine Aminotransfer ALT/SGPT 18 U/L (13-56); Albumin, Serum 3.8 g/dL (3.2-5.0); Alkaline Phosphatase 94 U/L (45-117); Anion Gap 9 (5-15); BUN 6 mg/dL (7-18); BUN/Creat Ratio 7.8 RATIO (10-20); Chloride 105 mmol/L (98-107); Creatinine, Serum 0.77 mg/dL (0.55-1.02); EST Glomerular Filtration Rate 88 mL/min (>60); Est Glom Filt Rate - Afr Amer 106 mL/min (>60); Estradiol < 11.0 pg/mL; Follicle Stimulating Hormone 5.3 mIU/mL; Globulin 4.1 g/dL (2.2-4.2); Glucose 71 mg/dL (74-106); Iron 42 ug/dL (50-170); Iron Binding Capacity,Total 457 ug/dL (250-450); Luteinizing Hormone 1.5 mIU/mL; PERCENT IRON SATURATION 9.2 % (15.0-55.0); Potassium 3.9 mmol/L (3.5-5.1); Protein, Total 7.9 g/dL (6.4-8.2); Sodium Level 139 mmol/L (136-145)
== END | disposition home or self-care (01) ==
LOC: VSLAB 09:09
PROVIDERS: PCP Nurse Practitioner Family; Visit Provider Nurse Practitioner Family
DX: N91.2 Amenorrhea, unspecified (principal); D64.9 Anemia, unspecified; I10 Essential (primary) hypertension
CPT/HCPCS: 36415; 80053; 82670; 83001; 83002; 83540; 83550; 84443; 85025

== ENCOUNTER 2024-09-17 11:31 | Outpatient (CLI) | payer MEDICAID, SELFPAY ==
[2024-09-17 13:17] LABS: Absolute Neutrophil Count 6.2 X10^3/uL (2.0-7.7); Basophil% 1.1 % (0-1); Eosinophil# 0.08 X10^3/uL; Eosinophils% 0.9 % (0-5); Hematocrit 47.6 % (37-47); Lymphocyte % 24.8 % (19-41); Mean Corp Hgb Conc 33.6 g/dL (32-36); Mean Corpuscular Volume 89.3 fL (81-99); Monocyte# 0.56 X10^3/uL; NRBC Flagged by Analyzer 0 % (0-5); Neutrophil # 6.22 X10^3/uL (2.7-7.7); Neutrophil % 66.9 % (47-70); Platelet Count 329 K/mm3 (150-450); RBC Distribution Width CV 12.7 % (11.6-14.6); RBC Distribution Width SD 41.4 fl (35.1-43.9); Red Blood Count 5.33 M/mm3 (4.2-5.4); White Blood Count 9.3 K/mm3 (4.4-11.0)
[2024-09-17 20:42] LABS: ALB/GLOB Ratio 1.5 RATIO (0.9-2.4); AST(SGOT) 17 U/L (<=31); Alanine Aminotransfer ALT/SGPT 11 U/L (<=34); Albumin, Serum 4.5 g/dL (3.5-5.0); Alkaline Phosphatase 82 U/L (35-104); Anion Gap 13 (5-15); BUN 5 mg/dL (4-19); Calcium 9.8 mg/dL (7.6-11.0); Carbon Dioxide 21.7 mmol/L (22.0-29.0); Chloride 101 mmol/L (96-108); Creatinine, Serum 0.7 mg/dL (0.6-1.0); EST Glomerular Filtration Rate 109 (>60); Glucose 79 mg/dL (70-99); Potassium 4.1 mmol/L (3.3-5.1); Protein, Total 7.4 g/dL (5.9-8.4); Sodium Level 135 mmol/L (133-145); Thyroid Stim Hormone (TSH) 0.865 uIU/mL (0.300-4.200); Total Bilirubin 0.44 mg/dL (0.00-1.30)
[2024-09-18 05:49] LABS: HIV Nonreactive (Nonreactive)
[2024-09-20 05:07] LABS: HEPATITIS B SURFACE AG Negative (Negative); Hepatitis A IgM Antibody Negative (Negative); Hepatitis B Core AB IgM Negative (Negative)
== END 2024-09-17 23:59 | disposition home or self-care (01) ==
PROVIDERS: PCP Nurse Practitioner Family; Referring Provider Nurse Practitioner Family; Visit Provider Nurse Practitioner Family
DX: Z00.00 Encounter for general adult medical examination without abnormal findings (principal)
CPT/HCPCS: 36415; 80053; 84443; 85025; 86703; 86705; 86709; 87340

== ENCOUNTER → 2025-01-01 | Outpatient (CLI) | payer MEDICAID, SELFPAY ==
[2025-01-01 17:11] LABS: Absolute Lymphocyte Count 2.91 X10^3/uL (0.83-4.51); Absolute Neutrophil Count 4.9 X10^3/uL (2.0-7.7); Basophil# 0.08 X10^3/uL; Basophil% 0.9 % (0-1); Eosinophils% 1.2 % (0-5); Hematocrit 43.2 % (37-47); Hemoglobin 15.2 g/dL (12.0-15.0); Lymphocyte # 2.91 X10^3/ul (0.83-4.51); Mean Corp Hgb Conc 35.2 g/dL (32-36); Mean Corpuscular Hgb 30.3 pg (27.0-32.0); Mean Corpuscular Volume 86.1 fL (81-99); Mean Platelet Vol. 8.8 fl (6.2-12.0); Monocyte# 0.55 X10^3/uL; Monocyte% 6.4 % (0-10); NRBC Flagged by Analyzer 0 % (0-5); Neutrophil % 57.3 % (47-70); Platelet Count 315 K/mm3 (150-450); RBC Distribution Width CV 12.9 % (11.6-14.6); RBC Distribution Width SD 40.5 fl (35.1-43.9); Red Blood Count 5.02 M/mm3 (4.2-5.4); White Blood Count 8.6 K/mm3 (4.4-11.0)
[2025-01-01 17:45] LABS: ALB/GLOB Ratio 1.7 RATIO (0.9-2.4); AST(SGOT) 15 U/L (<=31); Alanine Aminotransfer ALT/SGPT 10 U/L (<=34); Albumin, Serum 4.3 g/dL (3.5-5.0); Alkaline Phosphatase 95 U/L (35-104); Anion Gap 13 (5-15); BUN 6 mg/dL (4-19); BUN/Creat Ratio 8.5 RATIO (10-20); Calcium,Total 9.3 mg/dL (7.6-11.0); Carbon Dioxide 21.9 mmol/L (21.0-32.0); Chloride 93 mmol/L (98-108); Creatinine, Serum 0.69 mg/dL (0.70-1.20); EST Glomerular Filtration Rate 112 (>60); Globulin 2.6 g/dL (2.2-4.2); Glucose 103 mg/dL (70-99); Potassium 4.1 mmol/L (3.3-5.1); Protein, Total 6.9 g/dL (5.9-8.4); Sodium Level 128 mmol/L (133-145); Total Bilirubin 0.37 mg/dL (0.00-1.30)
[2025-01-01 17:54] LABS: Estradiol < 5.0 pg/mL; Follicle Stimulating Hormone 3.6 mIU/mL; Luteinizing Hormone < 0.3 mIU/mL
== END | disposition home or self-care (01) ==
LOC: VSLAB 15:52
PROVIDERS: PCP Nurse Practitioner Family; Visit Provider Nurse Practitioner Family
DX: N91.2 Amenorrhea, unspecified (principal); D64.9 Anemia, unspecified; I10 Essential (primary) hypertension
CPT/HCPCS: 36415; 80053; 82670; 83001; 83002; 84443; 85025